=== PATIENT | female | born 2000 | race Caucasian/White ===

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

== ENCOUNTER 2018-06-14 23:51 | Emergency (ER) | payer MEDICAID, OTHER ==
[2018-06-15] MEDS ORDERED: Ketorolac 60 MG/2 ML SDV IM ONE (00:43)
--- NOTE | 2018-06-15 00:51 | EDM.PDOC ---
ED HPI GENERAL MEDICAL PROBLEM - General Chief Complaint: Back Pain or Injury Stated Complaint: LOWER BACK PAIN Time Seen by Provider: 06/15/18 00:20 Source of Information: Reports: Patient History Limitations: Reports: No Limitations - History of Present Illness INITIAL COMMENTS - FREE TEXT/NARRATIVE: c/o LBP x 1h pt with b/l mid and low back pain x 1h, onset 11 PM, took Tyl x 2 without benefit, raps around hips worked at [employer] earlier in the day, no injury 22 wk preg pt called OB on-call doc who told her to go to nearest ED continuous, no cramping, no lower abd or uterine pain FHTs wnl here with sig other is scheduled to work at [employer] form 10a to 4p today, did request work note treatment plan reviewed, pt voiced her understanding 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 Lower back Pain Score (Numeric/FACES): 7 - Related Data Allergies Allergy/AdvReac Type Severity Reaction Status Date / Time Penicillins Allergy Difficulty Verified 06/15/18 00:03 Breathing Home Meds: Home Meds Vit37/Iron/Folic Acid [Prenata] 1 tab DAILY 06/15/18 [History] Past Medical History - Past Health History Medical/Surgical History: Denies Medical/Surgical History Genitourinary History: Reports: Pyelonephritis 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 Musculoskeletal History: Reports: Arthritis, Fracture, Fibromyalgia, Other (See Below) Other Musculoskeletal History: scoliosis, hx fx R hand Neurological History: Reports: Other (See Below) Other Neuro History: scoliosis Endocrine/Metabolic History: Reports: Obesity/BMI 30+ - Past Surgical History HEENT Surgical History: Reports: Adenoidectomy, Tonsillectomy Neurological Surgical History: Reports: None Musculoskeletal Surgical History: Reports: Other (See Below) Other Musculoskeletal Surgeries/Procedures:: bilat stretching of ligaments in lower legs Social & Family History - Family History Family Medical History: Noncontributory - Tobacco Use Smoking Status *Q: Never Smoker - Caffeine Use Caffeine Use: Reports: Soda - Recreational Drug Use Recreational Drug Use: No ED ROS GENERAL - Review of Systems Review Of Systems: See Below Constitutional: Reports: No Symptoms HEENT: Reports: No Symptoms Respiratory: Reports: No Symptoms Cardiovascular: Reports: No Symptoms Endocrine: Reports: No Symptoms GI/Abdominal: Reports: No Symptoms : Reports: No Symptoms Musculoskeletal: Reports: Back Pain Skin: Reports: No Symptoms Neurological: Reports: No Symptoms Psychiatric: Reports: No Symptoms Hematologic/Lymphatic: Reports: No Symptoms Immunologic: Reports: No Symptoms ED EXAM,LOWER BACK PAIN/INJURY - Physical Exam Exam: See Below Exam Limited By: No Limitations General Appearance: Alert, WD/WN, Mild Distress Ears: Normal External Exam Nose: Normal Inspection, Normal Mucosa, No Blood Throat/Mouth: Normal Inspection, Normal Lips, Normal Voice, No Airway Compromise Head: Atraumatic, Normocephalic Neck: Normal Inspection, Supple, Non-Tender, Full Range of Motion Respiratory/Chest: No Respiratory Distress, Lungs Clear, Normal Breath Sounds, No Accessory Muscle Use, Chest Non-Tender Cardiovascular: Regular Rate, Rhythm, No Edema, No Gallop, No JVD, No Murmur, No Rub GI/Abdominal: Soft, Non-Tender, No Organomegaly, No Distention Back Exam: Normal Inspection, Full Range of Motion, Other (sitting rather stiffly on edge of bed, has non-localized tender to light touch over the lower 2 /3rds of the back, no true spasm, no bony tender, no SI tender) Extremities: Normal Inspection, Non-Tender, No Pedal Edema Neurological: Alert, Normal Mood/Affect, CN II-XII Intact, No Motor/Sensory Deficits, Oriented x 3 Psychiatric: Anxious Skin Exam: Warm, Dry, Intact, Normal Color, No Rash Lymphatic: No Adenopathy Course - Vital Signs Last Recorded V/S: Last Vital Signs Temp 36.6 C 06/15/18 00:02 Pulse 108 H 06/15/18 00:02 Resp 20 06/15/18 00:02 BP 144/99 H 06/15/18 00:02 Pulse Ox 100 06/15/18 00:02 - Orders/Labs/Meds Labs: Laboratory Tests 06/15/18 Range/Units 00:10 Urine Color Yellow (YELLOW) Urine Appearance Clear (CLEAR) Urine pH 5.0 (5.0-6.5) Ur Specific Dewitt 1.020 (1.010-1.025) Urine Protein Negative (NEGATIVE) mg/dL Urine Glucose (UA) Normal (NEGATIVE) mg/dL Urine Ketones Negative (NEGATIVE) mg/dL Urine Occult Blood Negative (NEGATIVE) Urine Nitrite Negative (NEGATIVE) Urine Bilirubin Negative (NEGATIVE) Urine Urobilinogen Normal (NEGATIVE) mg/dL Ur Leukocyte Esterase Negative (NEGATIVE) Urine RBC 0-5 (0) Urine WBC 0-5 (0) Ur Squamous Epith Cells Occasional (NS,R,O) Urine Bacteria Few H (NS) Meds: Medications Discontinued Medications Generic Name Dose Route Start Last Admin Trade Name Lamberto PRN Reason Stop Dose Admin Ketorolac Tromethamine 60 mg 06/15/18 00:43 Toradol IM 06/15/18 00:44 ONETIME ONE - Re-Assessments/Exams Free Text/Narrative Re-Assessment/Exam: 06/15/18 00:50 has low back strain in absence of known injury, c/w overuse and Departure - Departure Time of Disposition: 00:50 Disposition: Home, Self-Care 01 Condition: Good Clinical Impression: Low back strain - Discharge Information *PRESCRIPTION DRUG MONITORING PROGRAM REVIEWED*: Not Applicable *COPY OF PRESCRIPTION DRUG MONITORING REPORT IN PATIENT JUDAH: Not Applicable Instructions: Low Back Strain Referrals: Manoj Miramontes MD [Primary Care Provider] - Forms: ED Department Discharge, ED Return to Work/School Form Additional Instructions: For pain and inflammation, take acetaminophen 500 mg 2 tabs and ibuprofen 200 mg 3 tabs 4 times a day for 3 days, longer if needed. Use heat for 10 minutes 4 times a day. Sleep on a firm mattress. Rest today. No work. See your doctor next week. Return to ED if you are feeling worse.
[2018-06-15 03:12] VITALS: BP 145/89
== END 2018-06-15 01:33 | disposition home or self-care (01) ==
LOC: FB.ED 23:51
DX: O99.89 Other specified diseases and conditions complicating pregnancy, childbirth and the puerperium (principal); S39.012A Strain of muscle, fascia and tendon of lower back, initial encounter; Z88.0 Allergy status to penicillin; Z79.899 Other long term (current) drug therapy; Z3A.22 22 weeks gestation of pregnancy; X58.XXXA Exposure to other specified factors, initial encounter
CPT/HCPCS: 81001; 96372; 99283; J1885

== ENCOUNTER 2018-07-27 14:33 | Emergency (ER) | payer OTHER, MEDICAID ==
[2018-07-27] MEDS ORDERED: Acetaminophen 325 MG Tab PO ONE (14:49)
--- NOTE | 2018-07-27 14:52 | EDM.PDOC ---
ED HPI GENERAL MEDICAL PROBLEM - General Stated Complaint: R ARM INJURY Time Seen by Provider: 07/27/18 14:33 Source of Information: Reports: Patient, Family History Limitations: Reports: No Limitations - History of Present Illness INITIAL COMMENTS - FREE TEXT/NARRATIVE: 18 y.o.f. 6 months, came to the ed after a box fell onto her right arm at work. Pt has pain at her right arm since. She has FROM of her right elbow and limited ROM of her right shoulder with severe pain at her right humerus. 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 BP 138/86 RR 15 Pulse ox 100% on RA Pulse 110 Temp 36.7 Onset Date: 07/27/18 Onset Time: 14:00 Duration: Hour(s):, Constant Location: Reports: Upper Extremity, Right Quality: Reports: Dull, Pressure Severity: Moderate Improves with: Reports: Rest Worsens with: Reports: Movement Context: Reports: Trauma (Box fell on right arm) Associated Symptoms: Reports: Other (Pt is 6 months ) right shoulder Pain Score (Numeric/FACES): 8 - Related Data Allergies Allergy/AdvReac Type Severity Reaction Status Date / Time Penicillins Allergy Difficulty Verified 07/27/18 14:55 Breathing Home Meds: Home Meds Vit37/Iron/Folic Acid [Prenata] 1 tab DAILY 06/15/18 [History] Past Medical History - Past Health History Medical/Surgical History: Denies Medical/Surgical History Genitourinary History: Reports: Pyelonephritis 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 Musculoskeletal History: Reports: Arthritis, Fracture, Fibromyalgia, Other (See Below) Other Musculoskeletal History: scoliosis, hx fx R hand Neurological History: Reports: Other (See Below) Other Neuro History: scoliosis Endocrine/Metabolic History: Reports: Obesity/BMI 30+ - Past Surgical History HEENT Surgical History: Reports: Adenoidectomy, Tonsillectomy Neurological Surgical History: Reports: None Musculoskeletal Surgical History: Reports: Other (See Below) Other Musculoskeletal Surgeries/Procedures:: bilat stretching of ligaments in lower legs Social & Family History - Family History Family Medical History: Noncontributory - Caffeine Use Caffeine Use: Reports: Soda Review of Systems - Review of Systems Review Of Systems: See Below Constitutional: Reports: No Symptoms Eyes: Reports: No Symptoms Ears: Reports: No Symptoms Nose: Reports: No Symptoms Mouth/Throat: Reports: No Symptoms Respiratory: Reports: No Symptoms Cardiovascular: Reports: No Symptoms GI/Abdominal: Reports: No Symptoms Genitourinary: Reports: No Symptoms Musculoskeletal: Reports: Arm Pain (right upper arm) Skin: Reports: No Symptoms Neurological: Reports: No Symptoms Psychiatric: Reports: No Symptoms ED EXAM, GENERAL - Physical Exam Exam: See Below Exam Limited By: No Limitations General Appearance: Alert, WD/WN, Mild Distress Eye Exam: Bilateral Eye: Normal Inspection Ears: Normal External Exam Ear Exam: Bilateral Ear: Auricle Normal Nose: Normal Inspection, Normal Mucosa Throat/Mouth: Normal Inspection, Normal Lips, Normal Teeth, Normal Voice, No Airway Compromise Head: Atraumatic, Normocephalic Neck: Normal Inspection, Supple, Non-Tender, Full Range of Motion Respiratory/Chest: No Respiratory Distress, Lungs Clear, Normal Breath Sounds, No Accessory Muscle Use, Chest Non-Tender Cardiovascular: Normal Peripheral Pulses, Regular Rate, Rhythm, No Edema, No Gallop, No Murmur, No Rub GI/Abdominal: Normal Bowel Sounds, Soft, Non-Tender, No Organomegaly, No Abnormal Bruit, No Mass, Pelvis Stable (Female) Exam: Deferred Rectal (Female) Exam: Deferred Back Exam: Normal Inspection, Full Range of Motion Extremities: Normal Inspection, Limited Range of Motion (right upper arm due to pain) Neurological: Alert, Oriented, CN II-XII Intact, Normal Cognition, Normal Gait Psychiatric: Normal Affect, Normal Mood Skin Exam: Warm, Dry, Intact, Normal Color, No Rash Lymphatic: No Adenopathy Course - Vital Signs Text/Narrative:: 18 y.o.f. 6 months, came to the ed after a box fell onto her right arm at work. Pt has pain at her right arm since. She has FROM of her right elbow and limited ROM of her right shoulder with severe pain at her right humerus. 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 BP 138/86 RR 15 Pulse ox 100% on RA Pulse 110 Temp 36.7 PE: 18 y.o.w.f with right arm pain due to trauma at work. Imaging: Right arm/shoulder: NAD Impression: Right upper Arm sprain Tx: Tylenol, Ice, [place] Reexam: Improved Plan: D/C with instructions Last Recorded V/S: Last Vital Signs Temp 36.4 C 07/27/18 15:32 Pulse 104 H 07/27/18 15:32 Resp 16 07/27/18 15:32 BP 131/87 07/27/18 15:32 Pulse Ox 98 07/27/18 15:32 - Orders/Labs/Meds Orders: Active Orders 24 hr Category Date Time Status Humerus Rt [CR] Stat Exams 07/27/18 14:48 Taken Meds: Medications Discontinued Medications Generic Name Dose Route Start Last Admin Trade Name Lamberto PRN Reason Stop Dose Admin Acetaminophen 650 mg 07/27/18 14:49 07/27/18 14:55 Tylenol PO 07/27/18 14:50 650 mg NOW ONE Administration Departure - Departure Time of Disposition: 15:25 Disposition: Home, Self-Care 01 Condition: Good Clinical Impression: Sprain of upper arm, right Qualifiers: Encounter type: initial encounter Qualified Code(s): S53.401A - Unspecified sprain of right elbow, initial encounter - Discharge Information Instructions: RICE for Routine Care of Injuries Referrals: Manoj Miramontes MD [Primary Care Provider] - Forms: ED Return to Work/School Form Additional Instructions: Rest, Ice and elevation, Tylenol for pain, please f/u, come back if your symptoms get worse acutely. - My Orders Last 24 Hours: My Active Orders 07/27/18 14:48 Humerus Rt [CR] Stat - Assessment/Plan Last 24 Hours: My Active Orders 07/27/18 14:48 Humerus Rt [CR] Stat
[2018-07-27 15:42] VITALS: BP 131/87
--- NOTE | 2018-07-29 10:54 | CR ---
INDICATION: Trauma, pain upper arm/shoulder area. RIGHT HUMERUS: Three images of the right humerus were obtained and revealed the shoulder to appear intact with the humerus negative for fracture, dislocation, or other significant bone or joint abnormality. [facility]
== END 2018-07-27 15:35 | disposition home or self-care (01) ==
LOC: FB.ED 14:33
DX: S53.401A Unspecified sprain of right elbow, initial encounter (principal); E66.9 Obesity, unspecified; Z88.0 Allergy status to penicillin; W20.8XXA Other cause of strike by thrown, projected or falling object, initial encounter
CPT/HCPCS: 73060-RT; 99283-25; A9270-GY

== ENCOUNTER 2018-09-02 23:18 | Emergency (ER) | payer MEDICAID ==
--- NOTE | 2018-09-02 23:39 | EDM.PDOC ---
ED HPI GENERAL MEDICAL PROBLEM - General Stated Complaint: RT HAND PAIN Time Seen by Provider: 09/02/18 23:30 - History of Present Illness INITIAL COMMENTS - FREE TEXT/NARRATIVE: pt is at 33 weeks with EDC on october 15 comes in after accidental fall with c/o right wrist pain , denies any other injuries or any other concerns. 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 Musculoskeletal History: Reports: Arthritis, Fracture, Fibromyalgia, Other (See Below) Other Musculoskeletal History: scoliosis, hx fx R hand Neurological History: Reports: Other (See Below) Other Neuro History: scoliosis Endocrine/Metabolic History: Reports: Obesity/BMI 30+ - Past Surgical History HEENT Surgical History: Reports: Adenoidectomy, Tonsillectomy Neurological Surgical History: Reports: None Musculoskeletal Surgical History: Reports: Other (See Below) Other Musculoskeletal Surgeries/Procedures:: bilat stretching of ligaments in lower legs Social & Family History - Family History Family Medical History: Noncontributory - Caffeine Use Caffeine Use: Reports: Soda ED ROS GENERAL - Review of Systems Review Of Systems: See Below Respiratory: Reports: No Symptoms Cardiovascular: Reports: No Symptoms GI/Abdominal: Reports: No Symptoms, Abdominal Pain ED EXAM, GENERAL - Physical Exam Exam: See Below Exam Limited By: No Limitations General Appearance: Alert, Mild Distress Respiratory/Chest: No Respiratory Distress Cardiovascular: Normal Peripheral Pulses Extremities: Other (tender all around right wrist, no deformities , ROM at right wrist is full. ) Neurological: Alert, Oriented Course - Vital Signs Text/Narrative:: xray shows no acute findings, supportive mng for wrist contusion injury was recommended. - Orders/Labs/Meds Orders: Active Orders 24 hr Category Date Time Status Wrist Comp Min 3V Rt [CR] Stat Exams 09/02/18 23:43 Taken Departure - Departure Time of Disposition: 00:05 Disposition: Home, Self-Care 01 Clinical Impression: Wrist contusion - Discharge Information Referrals: Manoj Miramontes MD [Primary Care Provider] - - Problem List & Annotations (1) Wrist contusion SNOMED Code(s): 60833322 Code(s): S60.219A - CONTUSION OF UNSPECIFIED WRIST, INITIAL ENCOUNTER Status: Acute Current Visit: No - My Orders Last 24 Hours: My Active Orders 09/02/18 23:43 Wrist Comp Min 3V Rt [CR] Stat - Assessment/Plan Last 24 Hours: My Active Orders 09/02/18 23:43 Wrist Comp Min 3V Rt [CR] Stat
[2018-09-03 01:27] VITALS: BP 147/95
--- NOTE | 2018-09-03 14:46 | CR ---
INDICATION: Pain after a fall distal to the joint. RIGHT WRIST: Three views of the right wrist were obtained 09/02/18 - no comparisons. A fracture, dislocation, or other significant bone or joint abnormality was not identified. [facility]
== END 2018-09-03 00:20 | disposition home or self-care (01) ==
LOC: FB.ED 23:18
DX: O9A.213 Injury, poisoning and certain other consequences of external causes complicating pregnancy, third trimester (principal); S60.211A Contusion of right wrist, initial encounter; Z88.0 Allergy status to penicillin; Z3A.33 33 weeks gestation of pregnancy; Z98.890 Other specified postprocedural states; W19.XXXA Unspecified fall, initial encounter
CPT/HCPCS: 73110-RT; 99283-25

== ENCOUNTER 2018-10-01 18:47 | Emergency (ER) | payer MEDICAID ==
[2018-10-01] MEDS ORDERED: Ketorolac 30 MG/ML SDV IVPUSH ONE ×2 (19:12→19:54)
[2018-10-01] MEDS: Sodium Chloride 0.9% 10 ML Syringe FLUSH PRN ×2 (19:22→20:05)
--- NOTE | 2018-10-01 20:00 | EDM.PDOC ---
ED HPI GENERAL MEDICAL PROBLEM - General Chief Complaint: Respiratory Problem Stated Complaint: CHEST PAIN, SOB, 7 DAYS POST C SECTION Time Seen by Provider: 10/01/18 19:00 Source of Information: Reports: Patient, Family, Old Records History Limitations: Reports: No Limitations - History of Present Illness INITIAL COMMENTS - FREE TEXT/NARRATIVE: Juan Manuel is about 10 days post for primigravida, and reports onset of sharp pains in the anterior chest 48 hrs ago that have escalated to a 9 /10 this evening, associated with pain with respirations. She points to the sternal and parasternal area, denies breast tenderness or sofía engorgement. There are no palpitations, sweats, sofía SOB, nausea or belching. She has a remote hx of fibromyalgia, and has been off gabapentin during the . - Related Data Allergies Allergy/AdvReac Type Severity Reaction Status Date / Time Penicillins Allergy Difficulty Verified 10/01/18 23:23 Breathing Home Meds: Home Meds Acetaminophen [Tylenol] 325 mg PO Q4H PRN 09/20/18 [History] Ranitidine HCl [Zantac 75] 75 mg PO DAILY PRN 09/20/18 [History] Past Medical History - Past Health History Medical/Surgical History: Denies Medical/Surgical History Cardiovascular History: Reports: Other (See Below) Other Cardiovascular History: Hospitalized with hypertension during . 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 ANALYST History: G1 Musculoskeletal History: Reports: Arthritis, Fracture, Fibromyalgia, Other (See Below) Other Musculoskeletal History: scoliosis, hx fx R hand Neurological History: Reports: Other (See Below) Other Neuro History: scoliosis Psychiatric History: Reports: ADHD Endocrine/Metabolic History: Reports: Diabetes, Gestational, Obesity/BMI 30+ - Past Surgical History HEENT Surgical History: Reports: Adenoidectomy, Tonsillectomy Cardiovascular Surgical History: Reports: None Neurological Surgical History: Reports: None Musculoskeletal Surgical History: Reports: Other (See Below) Other Musculoskeletal Surgeries/Procedures:: bilat stretching of ligaments in lower legs Social & Family History - Family History Family Medical History: Noncontributory - Caffeine Use Caffeine Use: Reports: Soda Other Caffeine Use: daily ED ROS GENERAL - Review of Systems Review Of Systems: See Below Constitutional: Reports: No Symptoms HEENT: Reports: No Symptoms Respiratory: Reports: Other (pain with breaths) Cardiovascular: Reports: Chest Pain Endocrine: Reports: No Symptoms GI/Abdominal: Reports: No Symptoms : Reports: No Symptoms Musculoskeletal: Reports: Other (pains in anterior chest, clavicals, lower back and pelvic joints) Skin: Reports: No Symptoms Neurological: Reports: No Symptoms Psychiatric: Reports: No Symptoms Hematologic/Lymphatic: Reports: No Symptoms Immunologic: Reports: No Symptoms ED EXAM, GENERAL - Physical Exam Exam: See Below Exam Limited By: No Limitations General Appearance: Alert, WD/WN, Anxious, Mild Distress, Obese Eye Exam: Bilateral Eye: EOMI, Normal Inspection, PERRL Ears: Normal External Exam Nose: Normal Inspection Throat/Mouth: Normal Inspection, Normal Oropharynx Head: Normocephalic Neck: Normal Inspection, Supple, Non-Tender, Full Range of Motion Respiratory/Chest: No Respiratory Distress, Normal Breath Sounds, No Accessory Muscle Use, Other (tender parasternal and xiphoid, sternoclavicular also tender) Cardiovascular: Normal Peripheral Pulses, Regular Rate, Rhythm, No Edema, No Murmur GI/Abdominal: Normal Bowel Sounds, Soft, Non-Tender, No Organomegaly, No Distention, No Mass (Female) Exam: Deferred Rectal (Female) Exam: Deferred Back Exam: Normal Inspection Extremities: Normal Inspection, Normal Range of Motion, Non-Tender Neurological: Alert, Oriented, CN II-XII Intact, Normal Cognition, No Motor/ Sensory Deficits Psychiatric: Normal Affect, Anxious Skin Exam: Warm, Dry, Intact, Normal Color Lymphatic: No Adenopathy Course - Vital Signs Text/Narrative:: Following assessment, screening labs were performed noting: Hgb 9.2 gm, WBC 9, 300, plts 468,000; d dimer 5.93, Troponin I <0.017; chest x ray normal for age, Chest CT angio neg for PE; Juan Manuel was administered Toradol 30 mg IV x2 with improvement in pain; her BP 140's/104 was elevated at time of discharge. Last Recorded V/S: Last Vital Signs Temp 36.6 C 10/01/18 19:00 Pulse 86 10/01/18 22:00 Resp 18 10/01/18 22:00 BP 146/104 H 10/01/18 22:00 Pulse Ox 100 10/01/18 22:00 - Orders/Labs/Meds Orders: Active Orders 24 hr Category Date Time Status EKG Documentation Completion [RC] ASDIRECTED Care 10/01/18 19:05 Active Ang Chest [CT] Stat Exams 10/01/18 20:18 Taken Chest 1V Frontal [CR] Stat Exams 10/01/18 19:04 Taken Peripheral IV Insertion Adult [OM.PC] Routine Oth 10/01/18 19:12 Ordered EKG 12 Lead [EK] Routine Ther 10/01/18 19:04 Ordered Labs: Laboratory Tests 10/01/18 10/01/18 10/01/18 Range/Units 19:12 19:12 19:12 WBC 9.3 (4.5-12.0) X10-3/uL RBC 3.22 L (3.23-5.20) x10(6)uL Hgb 9.2 L (11.5-15.5) g/dL Hct 27.1 L (30.0-51.3) % MCV 84.0 (80-96) fL MCH 28.6 (27.7-33.6) pg MCHC 34.1 (32.2-35.4) g/dL RDW 13.7 (11.5-15.5) % Plt Count 468 H (125-369) X10(3)uL MPV 7.5 (7.4-10.4) fL Neut % (Auto) 61.0 (46-82) % Lymph % (Auto) 26.9 (13-37) % [place] % (Auto) 8.2 (4-12) % Eos % (Auto) 4 (1.0-5.0) % Baso % (Auto) 0 (0-2) % Neut # (Auto) 5.7 (1.6-8.3) # Lymph # (Auto) 2.5 (0.6-5.0) # [place] # (Auto) 0.8 (0.0-1.3) # Eos # (Auto) 0.3 (0.0-0.8) # Baso # (Auto) 0.0 (0.0-0.2) # D-Dimer, Quantitative 5.93 H (0.0-0.59) mg/LFEU Sodium 141 (135-145) mmol/L Potassium 3.5 (3.5-5.3) mmol/L Chloride 107 (100-110) mmol/L Carbon Dioxide 21 (21-32) mmol/L BUN 10 (7-18) mg/dL Creatinine 0.7 (0.55-1.02) mg/dL Est Cr Clr Drug Dosing TNP Estimated GFR (MDRD) > 60 (>60) BUN/Creatinine Ratio 14.3 (9-20) Glucose 92 (80-116) mg/dL Calcium 8.9 (8.6-10.2) mg/dL Total Bilirubin 0.3 (0.1-1.3) mg/dL AST 18 (5-25) IU/L ALT 22 (12-36) U/L Alkaline Phosphatase 139 H (56-112) IU/L Troponin I (<0.017-0.056) ng/mL Total Protein 6.4 (6.0-8.0) g/dL Albumin 2.6 L (3.5-5.2) g/dL Globulin 3.8 g/dL Albumin/Globulin Ratio 0.7 06/18/19 Range/Units 19:12 WBC (4.5-12.0) X10-3/uL RBC (3.23-5.20) x10(6)uL Hgb (11.5-15.5) g/dL Hct (30.0-51.3) % MCV (80-96) fL MCH (27.7-33.6) pg MCHC (32.2-35.4) g/dL RDW (11.5-15.5) % Plt Count (125-369) X10(3)uL MPV (7.4-10.4) fL Neut % (Auto) (46-82) % Lymph % (Auto) (13-37) % [place] % (Auto) (4-12) % Eos % (Auto) (1.0-5.0) % Baso % (Auto) (0-2) % Neut # (Auto) (1.6-8.3) # Lymph # (Auto) (0.6-5.0) # [place] # (Auto) (0.0-1.3) # Eos # (Auto) (0.0-0.8) # Baso # (Auto) (0.0-0.2) # D-Dimer, Quantitative (0.0-0.59) mg/LFEU Sodium (135-145) mmol/L Potassium (3.5-5.3) mmol/L Chloride (100-110) mmol/L Carbon Dioxide (21-32) mmol/L BUN (7-18) mg/dL Creatinine (0.55-1.02) mg/dL Est Cr Clr Drug Dosing Estimated GFR (MDRD) (>60) BUN/Creatinine Ratio (9-20) Glucose (80-116) mg/dL Calcium (8.6-10.2) mg/dL Total Bilirubin (0.1-1.3) mg/dL AST (5-25) IU/L ALT (12-36) U/L Alkaline Phosphatase (56-112) IU/L Troponin I < 0.017 L (<0.017-0.056) ng/mL Total Protein (6.0-8.0) g/dL Albumin (3.5-5.2) g/dL Globulin g/dL Albumin/Globulin Ratio Meds: Medications Discontinued Medications Generic Name Dose Route Start Last Admin Trade Name Freq PRN Reason Stop Dose Admin Iopamidol 80 ml 10/01/18 20:45 10/01/18 21:05 Isovue-370 (76%) IV 10/01/18 20:46 80 ml . DIRECTED ONE Administration Ketorolac Tromethamine 30 mg 10/01/18 19:12 10/01/18 19:20 Toradol IVPUSH 10/01/18 19:13 30 mg ONETIME ONE Administration Ketorolac Tromethamine 30 mg 10/01/18 19:54 10/01/18 20:03 Toradol IVPUSH 10/01/18 19:55 30 mg ONETIME ONE Administration Sodium Chloride 10 ml 10/01/18 19:12 10/01/18 20:05 Saline Flush FLUSH 10 ml ASDIRECTED PRN Administration Keep Vein Open Departure - Departure Time of Disposition: 22:00 Disposition: Home, Self-Care 01 Condition: Fair Clinical Impression: Atypical chest pain - Discharge Information *PRESCRIPTION DRUG MONITORING PROGRAM REVIEWED*: Not Applicable *COPY OF PRESCRIPTION DRUG MONITORING REPORT IN PATIENT JUDAH: Not Applicable Instructions: Chest Wall Pain Referrals: Manoj Miramontes MD [Primary Care Provider] - Forms: ED Department Discharge Care Plan Goals: Take Tylenol or Advil for pain. Get a home blood pressure machine, monitor your blood pressure and report findings to your MD. - Problem List & Annotations (1) Atypical chest pain SNOMED Code(s): 295323427 Code(s): R07.89 - OTHER CHEST PAIN Status: Acute Annotation/Comment:: NSAIDs or Tylenol for pain, and follow up with PCP if sxs persist. (2) Hypertension SNOMED Code(s): 29017944 Code(s): I10 - ESSENTIAL (PRIMARY) HYPERTENSION Status: Acute Annotation/ Comment:: Consider a home BP monitoring device and follow up with PCP. Qualifiers: Hypertension type: unspecified Qualified Code(s): I10 - Essential (primary ) hypertension - Problem List Review Problem List Initiated/Reviewed/Updated: Yes - My Orders Last 24 Hours: My Active Orders 10/01/18 19:04 Chest 1V Frontal [CR] Stat EKG 12 Lead [EK] Routine 10/01/18 19:05 EKG Documentation Completion [RC] ASDIRECTED 10/01/18 19:12 Peripheral IV Insertion Adult [OM.PC] Routine 10/01/18 20:18 Ang Chest [CT] Stat - Assessment/Plan Last 24 Hours: My Active Orders 10/01/18 19:04 Chest 1V Frontal [CR] Stat EKG 12 Lead [EK] Routine 10/01/18 19:05 EKG Documentation Completion [RC] ASDIRECTED 10/01/18 19:12 Peripheral IV Insertion Adult [OM.PC] Routine 10/01/18 20:18 Ang Chest [CT] Stat Plan: Follow up with PCP.
[2018-10-01] MEDS ORDERED: Iopamidol 755 Mg/ML 100 ML Bottle IV ONE (20:45)
[2018-10-01 23:32] VITALS: BP 146/104
== END 2018-10-01 22:25 | disposition home or self-care (01) ==
LOC: FB.ED 18:47
DX: O99.89 Other specified diseases and conditions complicating pregnancy, childbirth and the puerperium (principal); R07.89 Other chest pain; O13.5 Gestational [pregnancy-induced] hypertension without significant proteinuria, complicating the puerperium; Z88.0 Allergy status to penicillin; Z79.899 Other long term (current) drug therapy
CPT/HCPCS: 36415; 71045; 71275; 80053; 84484; 85025; 85379; 93005; 96374; 96376; 99285-25; J1885; Q9967

== ENCOUNTER 2018-12-23 00:59 | Emergency (ER) | payer MEDICAID ==
--- NOTE | 2018-12-23 01:40 | EDM.PDOC ---
ED HPI GENERAL MEDICAL PROBLEM - General Chief Complaint: Chest Pain Stated Complaint: chest pain Time Seen by Provider: 12/23/18 01:22 Source of Information: Reports: Patient History Limitations: Reports: No Limitations - History of Present Illness INITIAL COMMENTS - FREE TEXT/NARRATIVE: 18-year-old female who reports she began having left-sided sharp chest pain at approximately 10 AM when she awoke yesterday morning. It was mild at this time and seemed to be worse with palpation, movement and with deep breaths. The pain did seem to come and go through the day and was of a mild nature when it came on. She has had no trauma to the area. She has had no cough or cold symptoms. She has had no fevers or chills. She has had no hemoptysis. Tonight at approximately midnight, she developed a worsening of this pain that she reports just will not go away. She rates the pain as an 8/10 now. She also reports feeling numbness and tingling in her arms and legs and face and he does appear to be hyperventilating at this time. The pain is a sharp and throbbing pain. She does feel somewhat short of breath with it. There has been no nausea or vomiting. She had a similar pain as this in the past following a and at that time (September 2018) she did have an elevated d-dimer but a negative CT of her chest for PE. There are no other associated signs or symptoms. There are no other modifying factors. 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: Musculoskeletal History: Reports: Arthritis, Fracture, Fibromyalgia, Other (See Below) Other Musculoskeletal History: scoliosis, hx fx R hand Psychiatric History: Reports: ADHD, Anxiety Endocrine/Metabolic History: Reports: Diabetes, Gestational, Obesity/BMI 30+ - Past Surgical History HEENT Surgical History: Reports: Adenoidectomy, Tonsillectomy Female Surgical History: Reports: Section Musculoskeletal Surgical History: Reports: Other (See Below) Other Musculoskeletal Surgeries/Procedures:: bilat stretching of ligaments in lower legs Social & Family History - Tobacco Use Smoking Status *Q: Unknown Ever Smoked (Nonsmoker) - Caffeine Use Caffeine Use: Reports: Soda Other Caffeine Use: daily - Alcohol Use Alcohol Use History: No - Living Situation & Occupation Living situation: Reports: with Significant Other ED ROS GENERAL - Review of Systems Review Of Systems: See Below Constitutional: Reports: No Symptoms HEENT: Reports: No Symptoms Respiratory: Reports: Shortness of Breath, Pleuritic Chest Pain Cardiovascular: Reports: Chest Pain Endocrine: Reports: No Symptoms GI/Abdominal: Reports: No Symptoms : Reports: No Symptoms, Other (Has a Mirena IUD in place) Musculoskeletal: Reports: No Symptoms Skin: Reports: No Symptoms Neurological: Reports: No Symptoms Psychiatric: Reports: Anxiety Hematologic/Lymphatic: Reports: No Symptoms Immunologic: Reports: No Symptoms ED EXAM, GENERAL - Physical Exam Exam: See Below Exam Limited By: No Limitations General Appearance: Alert, Anxious, Moderate Distress, Obese, Other (The patient is hyperventilating) Eye Exam: Bilateral Eye: EOMI, Normal Inspection, PERRL Ears: Normal External Exam, Hearing Grossly Normal Ear Exam: Bilateral Ear: Auricle Normal Nose: Normal Inspection, Normal Mucosa, No Blood Throat/Mouth: Normal Inspection, Normal Lips, Normal Oropharynx, Normal Voice, No Airway Compromise Head: Atraumatic, Normocephalic Neck: Normal Inspection, Supple, Non-Tender, Full Range of Motion Respiratory/Chest: No Respiratory Distress, Lungs Clear, Normal Breath Sounds, No Accessory Muscle Use, Other (Tender over her left chest where she is having the pain.) Cardiovascular: Normal Peripheral Pulses, Regular Rate, Rhythm, No JVD, No Murmur Peripheral Pulses: 2+: Radial (L), Radial (R), Dorsalis Pedis (L), Dorsalis Pedis (R) GI/Abdominal: Normal Bowel Sounds, Soft, Non-Tender, No Mass Back Exam: Normal Inspection, Full Range of Motion Extremities: Normal Inspection, Normal Range of Motion, Non-Tender, No Pedal Edema, Normal Capillary Refill Neurological: Alert, Oriented, CN II-XII Intact, Normal Cognition, No Motor/ Sensory Deficits Skin Exam: Warm, Dry, Intact, Normal Color, No Rash EKG INTERPRETATION EKG Date: 12/23/18 Time: 01:08 Rhythm: NSR Rate (Beats/Min): 95 [place]: Normal P-Wave: Present QRS: Normal ST-T: Other (Nonspecific ST-T changes) QT: Normal Comparison: No Change (From EKG performed on 09/2018.) Course - Vital Signs Last Recorded V/S: Last Vital Signs Temp 36.8 C 12/23/18 01:00 Pulse 97 12/23/18 01:00 Resp 20 12/23/18 01:00 BP 135/63 12/23/18 01:00 Pulse Ox 97 12/23/18 01:00 - Orders/Labs/Meds Orders: Active Orders 24 hr Category Date Time Status EKG Documentation Completion [RC] ASDIRECTED Care 12/23/18 01:42 Active Ang Chest [CT] Stat Exams 12/23/18 02:31 Ordered Chest 1V Frontal [CR] Stat Exams 12/23/18 01:41 Ordered Sodium Chloride 0.9% [Saline Flush] Med 12/23/18 02:31 Active 10 ml FLUSH ASDIRECTED PRN Peripheral IV Insertion Adult [OM.PC] Routine Oth 12/23/18 02:31 Ordered EKG 12 Lead [EK] Routine Ther 12/23/18 01:41 Ordered Medication Orders Sodium Chloride (Saline Flush) 10 ml FLUSH ASDIRECTED PRN PRN Reason: Keep Vein Open Labs: Laboratory Tests 12/23/18 12/23/18 Range/Units 01:52 01:52 D-Dimer, Quantitative 0.99 H (0.0-0.59) mg/LFEU Troponin I < 0.017 L (<0.017-0.056) ng/mL Meds: Medications Generic Name Dose Route Start Last Admin Trade Name Freq PRN Reason Stop Dose Admin Sodium Chloride 10 ml 12/23/18 02:31 Saline Flush FLUSH ASDIRECTED PRN Keep Vein Open Discontinued Medications Generic Name Dose Route Start Last Admin Trade Name Lamberto PRN Reason Stop Dose Admin Iopamidol 100 ml 12/23/18 02:49 12/23/18 02:53 Isovue-370 (76%) IV 12/23/18 02:50 90 ml ONETIME ONE Administration Ketorolac Tromethamine 60 mg 12/23/18 01:42 12/23/18 01:50 Toradol IM 12/23/18 01:43 60 mg ONETIME ONE Administration Lorazepam 0.5 mg 12/23/18 01:42 12/23/18 01:51 Ativan PO 12/23/18 01:43 0.5 mg ONETIME ONE Administration - Radiology Interpretation Free Text/Narrative:: Portable chest x-ray showed no acute disease. CTA of chest showed no evidence of pulmonary embolus and no evidence of an acute pulmonary process. The subsegmental pulmonary arteries were not that well opacified but the study was read as negative by the radiologist. - Re-Assessments/Exams Free Text/Narrative Re-Assessment/Exam: 12/23/18 02:32: EKG was normal. Portable chest x-ray showed no acute disease. The troponin was negative. A d-dimer was elevated at 0.99. The patient will need CTA of chest to rule out PE. I discussed this with the patient and will proceed with CTA of chest. 12/23/18 03:48: CTA of the chest was negative for pulmonary embolus. She is feeling much improved. Her pain is down to a 2/10. This appears to be costochondritis in her left upper chest that may have been worsened by muscle spasm. She also seems to have had a hyperventilation episode that produced the numbness and tingling chin in her arms, legs and face and this has resolved. We' ll have the patient take ibuprofen 600 mg to 800 mg by mouth every 6-8 hours as needed for pain. I will also prescribe Flexeril 10 mg by mouth 3 times a day as needed for muscle spasm. She is to follow-up with her primary doctor. Departure - Departure Time of Disposition: 04:00 Disposition: Home, Self-Care 01 Condition: Good (Improved) Clinical Impression: Costochondritis, Acute hyperventilation, Muscle spasm - Discharge Information Prescriptions: Cyclobenzaprine [Flexeril] 10 mg PO TID PRN #15 tab PRN Reason: Muscle spasm or muscle pain Instructions: Costochondritis, [id number] Referrals: Manoj Miramontes MD [Primary Care Provider] - Forms: ED Department Discharge Additional Instructions: Your EKG was normal. Your initial chest x-ray was normal. Your blood tests were normal except for a mildly elevated blood clot screening test. The CT scan of your chest showed no blood clots. The pain in your chest appears to be do to an inflammation of the junction between your ribs and your breastbone called costochondritis and the more severe pain the you had may have been due to muscle spasm associated with this. You may take ibuprofen 600-800 mg by mouth every 6-8 hours as needed for pain. Medication as prescribed for muscle spasm or more severe pain (Flexeril 10 mg). Avoid any strenuous activity with your arms for the next 3-5 days. Follow-up with your primary doctor as needed. Back to the emergency department for coughing up blood, high fever, vomiting or any other concerning sign or symptom. - My Orders Last 24 Hours: My Active Orders 12/23/18 01:41 Chest 1V Frontal [CR] Stat EKG 12 Lead [EK] Routine 12/23/18 01:42 EKG Documentation Completion [RC] ASDIRECTED 12/23/18 02:31 Ang Chest [CT] Stat Sodium Chloride 0.9% [Saline Flush] 10 ml FLUSH ASDIRECTED PRN Peripheral IV Insertion Adult [OM.PC] Routine - Assessment/Plan Last 24 Hours: My Active Orders 12/23/18 01:41 Chest 1V Frontal [CR] Stat EKG 12 Lead [EK] Routine 12/23/18 01:42 EKG Documentation Completion [RC] ASDIRECTED 12/23/18 02:31 Ang Chest [CT] Stat Sodium Chloride 0.9% [Saline Flush] 10 ml FLUSH ASDIRECTED PRN Peripheral IV Insertion Adult [OM.PC] Routine
[2018-12-23] MEDS ORDERED: Ketorolac 60 MG/2 ML SDV IM ONE (01:42)
[2018-12-23] MEDS ORDERED: LORazepam 0.5 MG Tab PO ONE (01:42)
[2018-12-23] MEDS ORDERED: Sodium Chloride 0.9% 10 ML Syringe FLUSH PRN (02:31)
[2018-12-23] MEDS ORDERED: Iopamidol 755 Mg/ML 100 ML Bottle IV ONE (02:49)
[2018-12-23 03:51] VITALS: BP 131/87; PULSE 82
--- NOTE | 2018-12-24 08:16 | CR ---
INDICATION: Chest pain. CHEST ONE VIEW: An AP upright view of the chest 12/23/18 was compared with revealing no definite change or acute process. The heart remains normal in size. A mild dextroconvex scoliosis of the lower middle thoracic spine is again noted. An active infiltrate or effusion was not identified. Overlying EKG leads are again seen. IMPRESSION: 1. Stable chest. No acute process. 2. Scoliosis. 3. Exogenous obesity. MTDD
== END 2018-12-23 04:16 | disposition home or self-care (01) ==
LOC: FB.ED 00:59
DX: M94.0 Chondrocostal junction syndrome [Tietze] (principal); M62.838 Other muscle spasm; R06.4 Hyperventilation; Z88.0 Allergy status to penicillin; Z98.890 Other specified postprocedural states
CPT/HCPCS: 36415; 71045; 71275; 84484; 85379; 93005; 96372; 99285; A9270; J1885; Q9967

== ENCOUNTER 2019-08-16 13:15 | Emergency (ER) | payer MEDICAID ==
--- NOTE | 2019-08-16 13:33 | EDM.PDOC ---
ED HPI GENERAL MEDICAL PROBLEM - General Chief Complaint: Lower Extremity Injury/Pain Stated Complaint: LT LEG PAIN Time Seen by Provider: 08/16/19 13:32 Source of Information: Reports: Patient History Limitations: Reports: No Limitations - History of Present Illness INITIAL COMMENTS - FREE TEXT/NARRATIVE: 19-year-old female who reports at approximately 1 PM today she was squatting down all of her knees bent and she was trying to get up and had to "rock" up and down on her knees to be able to stand up and while doing that she felt a sharp pain in the midportion of her left lower leg from the front to the back. This pain is rated by her as a 7/10. There were no other injuries. She is ambulatory. She has normal sensation to her foot. There was no direct trauma to the area. There is no swelling to the area. There are no other associated signs or symptoms. There are no other modifying factors. 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: Musculoskeletal History: Reports: Arthritis, Fracture, Fibromyalgia, Other (See Below) Other Musculoskeletal History: scoliosis, hx fx R hand Psychiatric History: Reports: ADHD, Anxiety Endocrine/Metabolic History: Reports: Diabetes, Gestational, Obesity/BMI 30+ - Past Surgical History HEENT Surgical History: Reports: Adenoidectomy, Tonsillectomy Female Surgical History: Reports: Section Musculoskeletal Surgical History: Reports: Other (See Below) Other Musculoskeletal Surgeries/Procedures:: bilat stretching of ligaments in lower legs Social & Family History - Tobacco Use Smoking Status *Q: Unknown Ever Smoked (Nonsmoker) - Caffeine Use Caffeine Use: Reports: Soda Other Caffeine Use: daily - Alcohol Use Alcohol Use History: Yes Alcohol Use Frequency: Rarely - Living Situation & Occupation 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.) Review of Systems - Review of Systems Review Of Systems: See Below Constitutional: Reports: No Symptoms Eyes: Reports: No Symptoms Ears: Reports: No Symptoms Nose: Reports: No Symptoms Mouth/Throat: Reports: No Symptoms Respiratory: Reports: No Symptoms Cardiovascular: Reports: No Symptoms GI/Abdominal: Reports: No Symptoms Genitourinary: Reports: No Symptoms Musculoskeletal: Reports: Leg Pain Skin: Reports: No Symptoms Neurological: Reports: No Symptoms ED EXAM, GENERAL - Physical Exam Exam: See Below Exam Limited By: No Limitations General Appearance: Alert, Mild Distress, Obese Eye Exam: Bilateral Eye: EOMI, Normal Inspection Ears: Normal External Exam, Hearing Grossly Normal Ear Exam: Bilateral Ear: Auricle Normal Nose: Normal Inspection, Normal Mucosa, No Blood Throat/Mouth: Normal Inspection, Normal Voice, No Airway Compromise Head: Atraumatic, Normocephalic Neck: Normal Inspection, Supple, Non-Tender, Full Range of Motion Respiratory/Chest: No Respiratory Distress, Lungs Clear, Normal Breath Sounds, No Accessory Muscle Use, Chest Non-Tender Cardiovascular: Normal Peripheral Pulses, Regular Rate, Rhythm, No Murmur Peripheral Pulses: 2+: Dorsalis Pedis (L), Dorsalis Pedis (R) GI/Abdominal: Normal Bowel Sounds, Soft, Non-Tender Back Exam: Normal Inspection Extremities: Normal Inspection, Normal Range of Motion, No Pedal Edema, Normal Capillary Refill, Other (Some tenderness to palpation over the anterior, mid left lower leg/tibia area.) Neurological: Alert, Oriented, CN II-XII Intact, Normal Cognition, No Motor/ Sensory Deficits Psychiatric: Normal Affect Skin Exam: Warm, Dry, Intact, Normal Color, No Rash Course - Vital Signs Last Recorded V/S: Last Vital Signs Temp 36.5 C 08/16/19 13:15 Pulse 103 H 08/16/19 13:15 Resp 18 08/16/19 13:15 BP 122/79 08/16/19 13:15 Pulse Ox 99 08/16/19 13:15 - Orders/Labs/Meds Orders: Active Orders 24 hr Category Date Time Status Tibia Fibula Lt [CR] Stat Exams 08/16/19 13:49 Ordered Meds: Medications Discontinued Medications Generic Name Dose Route Start Last Admin Trade Name Lamberto PRN Reason Stop Dose Admin Ibuprofen 800 mg 08/16/19 13:49 08/16/19 13:53 Motrin PO 08/16/19 13:50 800 mg ONETIME ONE Administration - Radiology Interpretation Free Text/Narrative:: X-ray of left tib-fib shows no fracture. - Re-Assessments/Exams Free Text/Narrative Re-Assessment/Exam: 08/16/19 14:19: The x-ray of the patient's left tib-fib shows no fracture. She appears to have a bruise or a strain to the left lower leg. She was given ibuprofen for the pain here in the emergency department and she should to ibuprofen and Tylenol as needed for pain. She may also apply ice packs intermittently to the area. She should ambulate as tolerated. Departure - Departure Time of Disposition: 14:22 Disposition: Home, Self-Care 01 Condition: Good Clinical Impression: Muscle strain of left lower leg Qualifiers: Encounter type: initial encounter Qualified Code(s): S86.912A - Strain of unspecified muscle(s) and tendon(s) at lower leg level, left leg, initial encounter - Discharge Information Instructions: Nunez Splints, [id number], Muscle Strain, [id number] Referrals: Manoj Miramontes MD [Primary Care Provider] - Forms: ED Department Discharge Additional Instructions: The x-ray of your left lower leg showed no evidence of fracture. You appear to have a muscular strain to this area and this could be nunez splints as well which represent a strain to the muscles and the covering of the bone of the lower leg. You may take ibuprofen and Tylenol as needed for pain. Ambulate as tolerated. Apply ice packs intermittently to the left lower leg (no more than 20 -30 minutes at a time) for the next 2-3 days. Follow-up with your primary doctor as needed. Sepsis Event Note - Evaluation Sepsis Screening Result: No Definite Risk - Focused Exam Vital Signs: Vital Signs Temp Pulse Resp BP Pulse Ox 08/16/19 13:15 36.5 C 103 H 18 122/79 99 Date Exam was Performed: 08/16/19 Time Exam was Performed: 14:19 - My Orders Last 24 Hours: My Active Orders 08/16/19 13:49 Tibia Fibula Lt [CR] Stat - Assessment/Plan Last 24 Hours: My Active Orders 08/16/19 13:49 Tibia Fibula Lt [CR] Stat
[2019-08-16] MEDS ORDERED: Ibuprofen 800 MG Tab PO ONE (13:49)
[2019-08-16 14:32] VITALS: BP 133/90; PULSE 96
--- NOTE | 2019-08-18 10:54 | CR ---
INDICATION: Pain mid calf. No history of trauma given. LEFT TIB-FIB: Frontal and lateral views of the left tibia and fibula reveal no evidence of a significant bone or joint abnormality. If an occult bony abnormality is suspected clinically, reexamination in 10 to 14 days and/or nuclear bone imaging may be helpful. MTDD
== END 2019-08-16 14:35 | disposition home or self-care (01) ==
LOC: FB.ED 13:15
DX: S86.912A Strain of unspecified muscle(s) and tendon(s) at lower leg level, left leg, initial encounter (principal); E66.9 Obesity, unspecified; M41.9 Scoliosis, unspecified; Z68.36 Body mass index [BMI] 36.0-36.9, adult; Z88.0 Allergy status to penicillin; X58.XXXA Exposure to other specified factors, initial encounter
CPT/HCPCS: 73590; 99283; A9270

== ENCOUNTER 2019-09-27 19:34 | Emergency (ER) | payer MEDICAID ==
--- NOTE | 2019-09-27 19:55 | EDM.PDOC ---
ED HPI GENERAL MEDICAL PROBLEM - General Chief Complaint: Lower Extremity Injury/Pain Stated Complaint: LEFT FOOT PAIN X1 WEEK Time Seen by Provider: 09/27/19 19:54 Source of Information: Reports: Patient History Limitations: Reports: No Limitations - History of Present Illness INITIAL COMMENTS - FREE TEXT/NARRATIVE: 19-year-old female who reports approximately one week ago she was walking out to take the trash to the dumpster and she was looking at a dock and accidentally stepped in a hole in her yard and twisted her left ankle and foot she had immediate pain in her left lateral foot but he seemed to get better after the first 1-2 days. And then beginning a few days after this she reports that the pain seemed to get worse and her pain is now a 7/10. It is a sharp and throbbing pain that is worse with patient and with movement. She finds it difficult to bear weight but she is ambulatory. No ankle pain. She has no knee pain. She did scrape her right knee when she fell but that has healed nicely and she has no pain in her right knee. There were no other injuries. There are no other associated signs or symptoms. There are no other modifying factors. Onset: Other (One week ago) Duration: Getting Worse Location: Reports: Lower Extremity, Left (Left foot) Quality: Reports: Sharp, Throbbing Severity: Moderate Improves with: Reports: Rest Worsens with: Reports: Other (Palpation. Bearing weight.), Movement Context: Reports: Trauma Associated Symptoms: Reports: No Other Symptoms Treatments REGULATORY AFFAIRS SPEC: Reports: Other (see below) (Nothing) left foot Pain Score (Numeric/FACES): 6 - Related Data Allergies Allergy/AdvReac Type Severity Reaction Status Date / Time Penicillins Allergy Difficulty Verified 08/16/19 13:24 Breathing Home Meds: Home Meds Leg Brace [Ankle Brace] 1 each ASDIRECTED #1 each 09/27/19 [Rx] Past Medical History Cardiovascular History: Reports: Other (See Below) Other Cardiovascular History: Hospitalized with hypertension during . 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: Musculoskeletal History: Reports: Arthritis, Fracture, Fibromyalgia, Other (See Below) Other Musculoskeletal History: scoliosis, hx fx R hand Neurological History: Reports: Other (See Below) Other Neuro History: scoliosis Psychiatric History: Reports: ADHD, Anxiety, Depression Other Psychiatric History: depression Endocrine/Metabolic History: Reports: Diabetes, Gestational, Obesity/BMI 30+ Hematologic History: Reports: Blood Transfusion(s) - Past Surgical History HEENT Surgical History: Reports: Adenoidectomy, Tonsillectomy Female Surgical History: Reports: Section Musculoskeletal Surgical History: Reports: Other (See Below) Other Musculoskeletal Surgeries/Procedures:: bilat stretching of ligaments in lower legs Social & Family History - Family History Family Medical History: Noncontributory - Tobacco Use Smoking Status *Q: Unknown Ever Smoked (Nonsmoker) - Caffeine Use Caffeine Use: Reports: Soda Other Caffeine Use: daily - Living Situation & Occupation 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.) Review of Systems - Review of Systems Review Of Systems: See Below Constitutional: Reports: No Symptoms Eyes: Reports: No Symptoms Ears: Reports: No Symptoms Nose: Reports: No Symptoms Mouth/Throat: Reports: No Symptoms Respiratory: Reports: No Symptoms Cardiovascular: Reports: No Symptoms GI/Abdominal: Reports: No Symptoms Genitourinary: Reports: No Symptoms Musculoskeletal: Reports: Foot Pain (Left foot pain) Skin: Reports: No Symptoms Neurological: Reports: No Symptoms Psychiatric: Reports: No Symptoms ED EXAM, GENERAL - Physical Exam Exam: See Below Exam Limited By: No Limitations General Appearance: Alert, WD/WN, Mild Distress, Obese Eye Exam: Bilateral Eye: EOMI, Normal Inspection Ears: Normal External Exam, Hearing Grossly Normal Ear Exam: Bilateral Ear: Auricle Normal Nose: Normal Inspection, Normal Mucosa, No Blood Throat/Mouth: Normal Inspection, Normal Lips, Normal Oropharynx, Normal Voice, No Airway Compromise Head: Atraumatic, Normocephalic Neck: Normal Inspection, Supple, Non-Tender, Full Range of Motion Respiratory/Chest: No Respiratory Distress, Lungs Clear, Normal Breath Sounds, No Accessory Muscle Use, Chest Non-Tender Cardiovascular: Normal Peripheral Pulses, Regular Rate, Rhythm, No Murmur Peripheral Pulses: 2+: Radial (L), Radial (R), Dorsalis Pedis (L), Dorsalis Pedis (R) GI/Abdominal: Normal Bowel Sounds, Soft, Non-Tender Back Exam: Normal Inspection Extremities: Normal Inspection, Normal Range of Motion, No Pedal Edema, Normal Capillary Refill, Other (There is tenderness to palpation over the left lateral midfoot. There is no crepitus or bony deformity. She has no ankle tenderness.) Neurological: Alert, Oriented, CN II-XII Intact, No Motor/Sensory Deficits Skin Exam: Warm, Dry, Intact, Normal Color, No Rash Course - Vital Signs Last Recorded V/S: Last Vital Signs Temp 36.7 C 09/27/19 20:45 Pulse 95 09/27/19 20:45 Resp 16 09/27/19 20:45 BP 117/74 09/27/19 20:45 Pulse Ox 100 09/27/19 20:45 - Orders/Labs/Meds Orders: Active Orders 24 hr Category Date Time Status Foot Comp Min 3V Lt [CR] Stat Exams 09/27/19 19:56 Taken - Radiology Interpretation Free Text/Narrative:: Left foot x-ray shows no definite fracture. - Re-Assessments/Exams Free Text/Narrative Re-Assessment/Exam: 09/27/19 20:42: I saw no definite fracture on the x-ray of her foot. He over the lateral aspect of her midfoot. There is no crepitus or deformity noted here. She does have some mild swelling. There is no erythema or increased warmth in the area. She appears to have a moderate sprain of her left lateral midfoot. I will place her in an Mitch wrap and place her on crutches for the next 2-3 days. I will also give her a prescription for an ASO ankle brace that she may use for comfort and support. She was told to take Tylenol and ibuprofen as needed for pain. She was encouraged to follow-up with her primary provider persisting pain after the 2-3 day period of rest. Precautions and reasons for return to the emergency department were discussed with the patient while she was in the emergency Department for details of the patient's discharge instructions. Departure - Departure Time of Disposition: 20:47 Disposition: Home, Self-Care 01 Condition: Good (Stable) Clinical Impression: Right foot strain Qualifiers: Encounter type: initial encounter Qualified Code(s): S96.911A - Strain of unspecified muscle and tendon at ankle and foot level, right foot, initial encounter - Discharge Information Prescriptions: Leg Brace [Ankle Brace] 1 each ASDIRECTED #1 each Instructions: Crutch Use, Adult, [id number], Foot Sprain Referrals: Manoj Miramontes MD [Primary Care Provider] - Forms: ED Department Discharge Additional Instructions: The x-ray of your left foot showed no definite fracture. You appear to have a strain of the ligaments along the lateral part of your mid foot. Use the Mitch wrap for comfort and support and use crutches with no weightbearing on your left foot for the next 3 days. After 3 days, you may use the ankle brace that I gave you a prescription and begin bearing weight on your left foot again with this brace in place and using your crutches. You may take ibuprofen and Tylenol for pain as needed. If you have pain that is persisting or worsening you should follow-up with your primary provider as you may need additional tests. Back to the emergency department sooner if you develop redness, increased swelling, increased warmth, any signs of infection or any other concerning sign or symptom. Sepsis Event Note (ED) - Evaluation Sepsis Screening Result: No Definite Risk - Focused Exam Vital Signs: Vital Signs Temp Pulse Resp BP Pulse Ox 09/27/19 20:45 36.7 C 95 16 117/74 100 09/27/19 19:34 37.0 C 107 H 17 123/88 97 - My Orders Last 24 Hours: My Active Orders 09/27/19 19:56 Foot Comp Min 3V Lt [CR] Stat - Assessment/Plan Last 24 Hours: My Active Orders 09/27/19 19:56 Foot Comp Min 3V Lt [CR] Stat
[2019-09-27 22:14] VITALS: BP 117/74; PULSE 95
--- NOTE | 2019-09-29 17:50 | CR ---
INDICATION: Fall with injury, pain top of foot. LEFT FOOT: Three views of the left foot were obtained 09/27/19 - no comparisons. There may be some soft tissue swelling at the level of the distal metatarsal shafts dorsally. A definite acute fracture, dislocation or other definite bone or joint abnormality was not identified. If symptoms persist - if occult fracture site is suspected clinically, reexamination 10 to 14 days may be helpful. MTDD
== END 2019-09-27 21:00 | disposition home or self-care (01) ==
LOC: FB.ED 19:34
DX: S96.912A Strain of unspecified muscle and tendon at ankle and foot level, left foot, initial encounter (principal); M41.9 Scoliosis, unspecified; E66.9 Obesity, unspecified; Z88.0 Allergy status to penicillin; Z68.34 Body mass index [BMI] 34.0-34.9, adult; X50.1XXA Overexertion from prolonged static or awkward postures, initial encounter
CPT/HCPCS: 73630-LT; 99283-25

== ENCOUNTER 2019-12-10 20:41 | Emergency (ER) | payer MEDICAID ==
[2019-12-10 20:56] VITALS: BP 140/95; PULSE 105
[2019-12-10] MEDS ORDERED: Acetaminophen 500 MG Tab PO ONE (21:09)
[2019-12-10] MEDS ORDERED: Ibuprofen 800 MG Tab PO ONE (21:09)
--- NOTE | 2019-12-10 21:57 | EDM.PDOC ---
ED HPI GENERAL MEDICAL PROBLEM - General Chief Complaint: Upper Extremity Injury/Pain Stated Complaint: HAND INJURY Time Seen by Provider: 12/10/19 20:55 Source of Information: Reports: Patient History Limitations: Reports: No Limitations - History of Present Illness INITIAL COMMENTS - FREE TEXT/NARRATIVE: Patient presented to the ED because of left hand and wrist injury. She fell and landed on her left hand yesterday. She c/o 7/10 pain. Left Hand Pain Score (Numeric/FACES): 7 - Related Data Allergies Allergy/AdvReac Type Severity Reaction Status Date / Time Penicillins Allergy Difficulty Verified 12/10/19 20:52 Breathing Home Meds: Home Meds DULoxetine [Cymbalta] 60 mg PO DAILY 12/10/19 [History] Past Medical History - Past Health History Medical/Surgical History: Denies Medical/Surgical History Cardiovascular History: Reports: Other (See Below) Other Cardiovascular History: Hospitalized with hypertension during . 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: Musculoskeletal History: Reports: Arthritis, Fracture, Fibromyalgia, Other (See Below) Other Musculoskeletal History: scoliosis, hx fx R hand Neurological History: Reports: Other (See Below) Other Neuro History: scoliosis Psychiatric History: Reports: ADHD, Anxiety, Depression Other Psychiatric History: depression Endocrine/Metabolic History: Reports: Diabetes, Gestational, Obesity/BMI 30+ Hematologic History: Reports: Blood Transfusion(s) - Past Surgical History HEENT Surgical History: Reports: Adenoidectomy, Tonsillectomy Female Surgical History: Reports: Section Musculoskeletal Surgical History: Reports: Other (See Below) Other Musculoskeletal Surgeries/Procedures:: bilat stretching of ligaments in lower legs Social & Family History - Family History Family Medical History: Noncontributory - Tobacco Use Smoking Status *Q: Never Smoker - Caffeine Use Caffeine Use: Reports: Coffee, Soda Other Caffeine Use: daily - Recreational Drug Use Recreational Drug Use: No - Living Situation & Occupation Living situation: Reports: with Significant Other 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.) Review of Systems - Review of Systems Review Of Systems: See Below Constitutional: Reports: No Symptoms Ears: Reports: No Symptoms Nose: Reports: No Symptoms, Previous Injury Respiratory: Reports: No Symptoms Cardiovascular: Reports: No Symptoms GI/Abdominal: Reports: No Symptoms Genitourinary: Reports: No Symptoms Musculoskeletal: Reports: Joint Pain, Joint Swelling Skin: Reports: No Symptoms Neurological: Reports: No Symptoms ED EXAM, GENERAL - Physical Exam Exam: See Below Exam Limited By: No Limitations General Appearance: Alert, No Apparent Distress Eye Exam: Bilateral Eye: PERRL Ears: Normal External Exam Nose: Normal Inspection, Normal Mucosa, No Blood Throat/Mouth: Normal Inspection, Normal Lips, Normal Teeth Head: Atraumatic, Normocephalic Neck: Normal Inspection, Supple, Non-Tender, Full Range of Motion Respiratory/Chest: No Respiratory Distress, Lungs Clear, Normal Breath Sounds Cardiovascular: Normal Peripheral Pulses, Regular Rate, Rhythm, No Edema, No Gallop GI/Abdominal: Normal Bowel Sounds, Soft, Non-Tender, No Organomegaly Back Exam: Normal Inspection Extremities: Normal Inspection, Limited Range of Motion, Other (tenderness and swelling left hand/ wrist) Course - Vital Signs Text/Narrative:: xray left hand-neg ibuprofen 800 mg with tylenol 1000 mg po x1 wrist splint(prefab) applied by ED RN Last Recorded V/S: Last Vital Signs Temp 37.4 C 12/10/19 20:53 Pulse 105 H 12/10/19 20:53 Resp 18 12/10/19 20:53 BP 140/95 H 12/10/19 20:53 Pulse Ox 98 12/10/19 20:53 - Orders/Labs/Meds Orders: Active Orders 24 hr Category Date Time Status Hand Comp Min 3V Lt [CR] Stat Exams 12/10/19 21:08 Taken Meds: Medications Discontinued Medications Generic Name Dose Route Start Last Admin Trade Name Lamberto PRN Reason Stop Dose Admin Acetaminophen 1,000 mg 12/10/19 21:09 12/10/19 21:18 Tylenol Extra Strength PO 12/10/19 21:10 1,000 mg ONETIME ONE Administration Ibuprofen 800 mg 12/10/19 21:09 12/10/19 21:19 Motrin PO 12/10/19 21:10 800 mg ONETIME ONE Administration Departure - Departure Time of Disposition: 21:55 Disposition: Home, Self-Care 01 Condition: Good Clinical Impression: Wrist sprain, Contusion - Discharge Information Instructions: Hand Contusion, Wrist Sprain, Adult, Wrist Splint, Adult Referrals: Manoj Miramontes MD [Primary Care Provider] - Forms: ED Department Discharge Additional Instructions: Please read discharge instructions on wrist sprain and contusion Take ibuprofen 800 mg with tylenol 1000 mg every 8 hours as needed for pain Follow up as needed Sepsis Event Note (ED) - Evaluation Sepsis Screening Result: No Definite Risk - Focused Exam Vital Signs: Vital Signs Temp Pulse Resp BP Pulse Ox 12/10/19 20:53 37.4 C 105 H 18 140/95 H 98 - My Orders Last 24 Hours: My Active Orders 12/10/19 21:08 Hand Comp Min 3V Lt [CR] Stat - Assessment/Plan Last 24 Hours: My Active Orders 12/10/19 21:08 Hand Comp Min 3V Lt [CR] Stat
--- NOTE | 2019-12-11 10:13 | CR ---
INDICATION: Fell with hand and wrist injury - pain base of index finger to wrist. LEFT HAND: Three views of the left hand were obtained 12/10/19 and compared with 09/15/16. An acute fracture, dislocation, or other significant bone or joint abnormality was not identified. If symptoms persist - if occult fracture site is suspected clinically, reexamination in 10-14 days may be helpful. [facility]
== END 2019-12-10 22:03 | disposition home or self-care (01) ==
LOC: FB.ED 20:41
DX: S63.502A Unspecified sprain of left wrist, initial encounter (principal); S60.222A Contusion of left hand, initial encounter; F41.9 Anxiety disorder, unspecified; F32.9 Major depressive disorder, single episode, unspecified; Z79.899 Other long term (current) drug therapy; E66.9 Obesity, unspecified; Z68.36 Body mass index [BMI] 36.0-36.9, adult; Z88.0 Allergy status to penicillin; W18.30XA Fall on same level, unspecified, initial encounter
CPT/HCPCS: 73130; 99283; A9270

== ENCOUNTER 2020-04-12 07:48 | Emergency (ER) | payer MEDICAID ==
[2020-04-12] MEDS: Simethicone 80 MG Tab.Chew PO STA (08:33)
[2020-04-12] MEDS: Magnesium Hydroxide 400 MG/5 ML Susp 30 ML Cup PO ONE (08:33)
[2020-04-12] MEDS: Bisacodyl 10 MG Supp RECTAL ONE (08:33)
[2020-04-12] MEDS: Sodium Chloride 0.9% 1,000 ML IV ONE (08:34)
--- NOTE | 2020-04-12 08:34 | EDM.PDOC ---
ED HPI GENERAL MEDICAL PROBLEM - General Chief Complaint: Abdominal Pain Stated Complaint: LOWER STOMACH PAIN Time Seen by Provider: 04/12/20 08:15 Source of Information: Reports: Patient History Limitations: Reports: No Limitations - History of Present Illness INITIAL COMMENTS - FREE TEXT/NARRATIVE: States she woke about 12am with lower abd pain took tylenol and placed warm p ack on her abdomen, was able to fall asleep but woke about 5am and the pain was worse , tried same and did not help so she came in for evaluation Onset: Today Onset Date: 04/12/20 Onset Time: 12:10 Duration: Hour(s): (8), Getting Worse Location: Reports: Abdomen Quality: Reports: Ache, Dull Severity: Moderate Improves with: Reports: None, Heat Therapy Worsens with: Reports: Eating, Movement Associated Symptoms: Reports: No Other Symptoms Treatments SUPERVISOR LOCOMOTIVE: Reports: Acetaminophen lower mid abdominal Pain Score (Numeric/FACES): 9 - Related Data Allergies Allergy/AdvReac Type Severity Reaction Status Date / Time Penicillins Allergy Difficulty Verified 04/12/20 08:10 Breathing Home Meds: Home Meds DULoxetine [Cymbalta] 60 mg PO BEDTIME 12/10/19 [History] Cranberry Extract [Ellura] 200 mg PO DAILY #30 capsule 04/12/20 [Rx] Gabapentin [Neurontin] 200 mg PO TID 04/12/20 [History] Sulfamethoxazole/Trimethoprim [Bactrim Ds Tablet] 1 each PO BID #14 tablet 04/12/20 [Rx] clonazePAM [Clonazepam] 0.5 mg PO BEDTIME 04/12/20 [History] Past Medical History - Past Health History Medical/Surgical History: Denies Medical/Surgical History Cardiovascular History: Reports: Other (See Below) Other Cardiovascular History: Hospitalized with hypertension during . Genitourinary History: Reports: Pyelonephritis NECK BAND SETTER History: Reports: Other NECK BAND SETTER History: Musculoskeletal History: Reports: Fracture, Fibromyalgia, Other (See Below) Other Musculoskeletal History: scoliosis, hx fx R hand Neurological History: Reports: Other (See Below) Other Neuro History: scoliosis Psychiatric History: Reports: ADHD, Anxiety, Depression Other Psychiatric History: depression Endocrine/Metabolic History: Reports: Diabetes, Gestational, Obesity/BMI 30+ Hematologic History: Reports: Blood Transfusion(s) - Past Surgical History HEENT Surgical History: Reports: Adenoidectomy, Tonsillectomy Cardiovascular Surgical History: Reports: None Female Surgical History: Reports: Section Other Female Surgeries/Procedures: CS x 1 Neurological Surgical History: Reports: None Musculoskeletal Surgical History: Reports: Other (See Below) Other Musculoskeletal Surgeries/Procedures:: bilat stretching of ligaments in lower legs Social & Family History - Family History Family Medical History: No Pertinent Family History - Tobacco Use Tobacco Use Status *Q: Never Tobacco User Second Hand Smoke Exposure: No - Caffeine Use Caffeine Use: Reports: Soda Other Caffeine Use: daily - Recreational Drug Use Recreational Drug Use: No - Living Situation & Occupation Living situation: Reports: with Significant Other 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 Denies: Flatus, Vomiting : Reports: Dysuria, Flank Pain, Pain. Denies: Frequency, Hematuria, Incontinence Musculoskeletal: Reports: No Symptoms Skin: Reports: No Symptoms Neurological: Reports: No Symptoms Psychiatric: Reports: No Symptoms Hematologic/Lymphatic: Reports: No Symptoms Immunologic: Reports: No Symptoms ED EXAM, GI/ABD - Physical Exam Exam: See Below Exam Limited By: No Limitations General Appearance: Alert, WD/WN, No Apparent Distress Eyes: Bilateral: EOMI Ears: Normal External Exam Nose: Normal Inspection Throat/Mouth: Normal Oropharynx Head: Atraumatic, Normocephalic Neck: Supple, Non-Tender Respiratory/Chest: No Respiratory Distress, Lungs Clear Cardiovascular: Regular Rate, Rhythm GI/Abdominal Exam: Soft, Distended, Tender, Abnormal Bowel Sounds (hypoactive BS). No: Guarding, Hernia, Hepatomegaly, Splenomegaly (Female) Exam: Deferred Back Exam: Normal Inspection Extremities: Normal Inspection Neurological: Alert, Oriented, CN II-XII Intact Psychiatric: Normal Affect Skin Exam: Warm, Intact Course - Vital Signs Last Recorded V/S: Last Vital Signs Temp 36.6 C 04/12/20 08:00 Pulse 108 H 04/12/20 08:00 Resp 18 04/12/20 08:00 BP 112/90 04/12/20 08:00 Pulse Ox 96 04/12/20 08:00 - Orders/Labs/Meds Orders: Active Orders 24 hr Category Date Time Status Abdomen 2V AP Flat Upright [CR] Stat Exams 04/12/20 08:21 Taken Sodium Chloride 0.9% [Saline Flush] Med 04/12/20 08:59 Active 10 ml FLUSH ASDIRECTED PRN Peripheral IV Insertion Adult [OM.PC] Routine Oth 04/12/20 08:59 Ordered Medication Orders Sodium Chloride (Saline Flush) 10 ml FLUSH ASDIRECTED PRN PRN Reason: Keep Vein Open Last Admin: 04/12/20 08:55 Dose: 10 ml Documented by: TAYLOR Labs: Laboratory Tests 04/12/20 04/12/20 04/12/20 Range/Units 08:24 08:30 08:30 WBC 7.4 (3.0-10.3) x10-3/uL RBC 4.87 (3.60-5.20) x10(6)uL Hgb 13.0 (11.4-15.5) g/dL Hct 40.1 (34.2-48.2) % MCV 82.3 (76.7-100.5) fL MCH 26.8 (23.9-33.9) pg MCHC 32.5 (31.9-34.8) g/dL RDW 14.3 (12.3-16.5) % Plt Count 264 (151-488) x10(3)uL MPV 8.4 (7.1-12.4) fL Neut % (Auto) 50.9 (30.8-76.2) % Lymph % (Auto) 34.7 (18.4-52.1) % [place] % (Auto) 9.0 (4.4-15.7) % Eos % (Auto) 4.4 (0.6-8.1) % Baso % (Auto) 1.0 (0.2-1.5) % Neut # (Auto) 3.8 (1.5-6.3) x10-3/uL Lymph # (Auto) 2.6 (1.0-4.4) x10-3/uL [place] # (Auto) 0.7 (0.3-1.0) x10-3/uL Eos # (Auto) 0.3 (0.0-0.8) x10-3/uL Baso # (Auto) 0.1 (0.0-0.1) x10-3/uL Sodium 140 (135-145) mmol/L Potassium 3.9 (3.5-5.3) mmol/L Chloride 105 (100-110) mmol/L Carbon Dioxide 25 (21-32) mmol/L BUN 10 (7-18) mg/dL Creatinine 0.7 (0.55-1.02) mg/dL Est Cr Clr Drug Dosing TNP Estimated GFR (MDRD) > 60 (>60) BUN/Creatinine Ratio 14.3 (9-20) Glucose 93 (80-116) mg/dL Calcium 9.5 (8.6-10.2) mg/dL Urine Color Yellow (YELLOW) Urine Appearance Slightly cloudy (CLEAR) Urine pH 7.0 H (5.0-6.5) Ur Specific [place] 1.010 (1.010-1.025) Urine Protein Negative (NEGATIVE) mg/dL Urine Glucose (UA) Normal (NORMAL) mg/dL Urine Ketones Negative (NEGATIVE) mg/dL Urine Occult Blood Negative (NEGATIVE) Urine Nitrite Negative (NEGATIVE) Urine Bilirubin Negative (NEGATIVE) Urine Urobilinogen Normal (NEGATIVE) mg/dL Ur Leukocyte Esterase Moderate H (NEGATIVE) Urine RBC 0-5 (0-5) Urine WBC 20-30 H (0-5) Ur Squamous Epith Cells Few H (NS,R,O) Urine Bacteria Few H (NS) Urine HCG, Qual (NEGATIVE) 04/12/20 Range/Units 08:34 WBC (3.0-10.3) x10-3/uL RBC (3.60-5.20) x10(6)uL Hgb (11.4-15.5) g/dL Hct (34.2-48.2) % MCV (76.7-100.5) fL MCH (23.9-33.9) pg MCHC (31.9-34.8) g/dL RDW (12.3-16.5) % Plt Count (151-488) x10(3)uL MPV (7.1-12.4) fL Neut % (Auto) (30.8-76.2) % Lymph % (Auto) (18.4-52.1) % [place] % (Auto) (4.4-15.7) % Eos % (Auto) (0.6-8.1) % Baso % (Auto) (0.2-1.5) % Neut # (Auto) (1.5-6.3) x10-3/uL Lymph # (Auto) (1.0-4.4) x10-3/uL [place] # (Auto) (0.3-1.0) x10-3/uL Eos # (Auto) (0.0-0.8) x10-3/uL Baso # (Auto) (0.0-0.1) x10-3/uL Sodium (135-145) mmol/L Potassium (3.5-5.3) mmol/L Chloride (100-110) mmol/L Carbon Dioxide (21-32) mmol/L BUN (7-18) mg/dL Creatinine (0.55-1.02) mg/dL Est Cr Clr Drug Dosing Estimated GFR (MDRD) (>60) BUN/Creatinine Ratio (9-20) Glucose (80-116) mg/dL Calcium (8.6-10.2) mg/dL Urine Color (YELLOW) Urine Appearance (CLEAR) Urine pH (5.0-6.5) Ur Specific [place] (1.010-1.025) Urine Protein (NEGATIVE) mg/dL Urine Glucose (UA) (NORMAL) mg/dL Urine Ketones (NEGATIVE) mg/dL Urine Occult Blood (NEGATIVE) Urine Nitrite (NEGATIVE) Urine Bilirubin (NEGATIVE) Urine Urobilinogen (NEGATIVE) mg/dL Ur Leukocyte Esterase (NEGATIVE) Urine RBC (0-5) Urine WBC (0-5) Ur Squamous Epith Cells (NS,R,O) Urine Bacteria (NS) Urine HCG, Qual Negative (NEGATIVE) Meds: Medications Generic Name Dose Route Start Last Admin Trade Name Freq PRN Reason Stop Dose Admin Sodium Chloride 10 ml 04/12/20 08:59 04/12/20 08:55 Saline Flush FLUSH 10 ml ASDIRECTED PRN Administration Keep Vein Open Discontinued Medications Generic Name Dose Route Start Last Admin Trade Name Freq PRN Reason Stop Dose Admin Bisacodyl 10 mg 04/12/20 08:23 04/12/20 08:33 Dulcolax RECTAL 04/12/20 08:24 10 mg ONETIME ONE Administration Sodium Chloride 1,000 mls @ 999 mls/hr 04/12/20 08:23 04/12/20 08:34 Normal Saline IV 04/12/20 09:23 999 mls/hr .BOLUS ONE Administration Ceftriaxone Sodium 1 gm/ 50 mls @ 200 mls/hr 04/12/20 09:09 04/12/20 09:29 Sodium Chloride IV 04/12/20 09:23 200 mls/hr ONETIME ONE Administration Magnesium Hydroxide 30 ml 04/12/20 08:22 04/12/20 08:33 Milk Of Magnesia PO 04/12/20 08:23 30 ml ONETIME ONE Administration Simethicone 160 mg 04/12/20 08:22 04/12/20 08:33 Simethicone PO 04/12/20 08:23 160 mg NOW STA Administration - Re-Assessments/Exams Free Text/Narrative Re-Assessment/Exam: 04/12/20 10:02 pt started on IVF , had UA for UPT and then had Xray of the abd done Noted to have Cystitis and started on IV Rocephin , tolerated well Will be discharged home on increased fluid intake , antibiotics, FU w PCP as needed Departure - Departure Time of Disposition: 10:00 Disposition: Home, Self-Care 01 Clinical Impression: Lower abdominal pain, Cystitis, UTI (urinary tract infection) - Discharge Information *PRESCRIPTION DRUG MONITORING PROGRAM REVIEWED*: Not Applicable *COPY OF PRESCRIPTION DRUG MONITORING REPORT IN PATIENT JUDAH: Not Applicable Prescriptions: Sulfamethoxazole/Trimethoprim [Bactrim Ds Tablet] 1 each PO BID #14 tablet Cranberry Extract [Ellura] 200 mg PO DAILY #30 capsule Instructions: Antibiotic Medicine, Adult, [id number], Constipation, Adult, [id number], Urinary Tract Infection, Adult, [id number] Referrals: Manoj Miramontes MD [Primary Care Provider] - Forms: ED Department Discharge, ED Return to Work/School Form Additional Instructions: 1) Increase fluid intake 2) Take laxative to clear out bowels 3) Follow up with PCP as needed Sepsis Event Note (ED) - Evaluation Sepsis Screening Result: No Definite Risk - Focused Exam Vital Signs: Vital Signs Temp Pulse Resp BP Pulse Ox 04/12/20 08:00 36.6 C 108 H 18 112/90 96 - My Orders Last 24 Hours: My Active Orders 04/12/20 08:21 Abdomen 2V AP Flat Upright [CR] Stat 04/12/20 08:59 Sodium Chloride 0.9% [Saline Flush] 10 ml FLUSH ASDIRECTED PRN Peripheral IV Insertion Adult [OM.PC] Routine - Assessment/Plan Last 24 Hours: My Active Orders 04/12/20 08:21 Abdomen 2V AP Flat Upright [CR] Stat 04/12/20 08:59 Sodium Chloride 0.9% [Saline Flush] 10 ml FLUSH ASDIRECTED PRN Peripheral IV Insertion Adult [OM.PC] Routine
[2020-04-12] MEDS: Sodium Chloride 0.9% 10 ML Syringe FLUSH PRN (08:55)
[2020-04-12] MEDS: cefTRIAXone 1 GM in Sodium Chloride 0.9% 50 ML IV ONE (09:29)
[2020-04-12 12:27] VITALS: BP 112/74; PULSE 89
--- NOTE | 2020-04-12 12:49 | CR ---
INDICATION: Lower abdominal pain. ABDOMEN TWO VIEW: Six images of the abdomen in supine and upright projections were obtained 04/12/20 - no comparisons. Evidence of exogenous obesity is noted. No evidence of free air or definite mechanically obstructive process was identified. However, there is a loop of what appears to be sigmoid colon which is relatively distended rising out the pelvis which could represent an intermittent or partial or early sigmoid volvulus, and should be correlated clinically. There is relative paucity of gas in the more distal colon, but also in the descending colon which may be incidental. Otherwise, no pathologic calcifications, organomegaly, or mass lesions were identified in the abdomen. A moderate dextroconcave rotoscoliosis of the upper middle lumbar spine is noted. IMPRESSION: 1. Cannot exclude the possibility of a sigmoid volvulus either early or partial or intermittent - correlate clinically. 2. Scoliosis. Report was called to Dr. Vale's voice mail at 1229 hours. [facility]
== END 2020-04-12 10:45 | disposition home or self-care (01) ==
LOC: FB.ED 07:48
DX: N30.90 Cystitis, unspecified without hematuria (principal); R10.30 Lower abdominal pain, unspecified; F32.9 Major depressive disorder, single episode, unspecified; F41.9 Anxiety disorder, unspecified; E66.9 Obesity, unspecified; Z68.36 Body mass index [BMI] 36.0-36.9, adult; Z88.0 Allergy status to penicillin; Z79.899 Other long term (current) drug therapy
CPT/HCPCS: 36415; 74019; 80048; 81001; 81025; 85025; 96365; 99284-25; A9270-GY; J0696; J7030

== ENCOUNTER 2020-06-10 20:45 | Emergency (ER) | payer MEDICAID ==
[2020-06-10] MEDS ORDERED: Sodium Chloride 0.9% 1,000 ML IV ONE (21:04)
[2020-06-10] MEDS ORDERED: hydrOXYzine HCl 50 MG/ML SDV IM ONE (21:04)
[2020-06-10] MEDS ORDERED: Ondansetron 4 MG/2 ML SDV IVPUSH ONE (21:04)
[2020-06-10] MEDS ORDERED: Ketorolac 30 MG/ML SDV IVPUSH ONE (21:04)
--- NOTE | 2020-06-10 21:12 | EDM.PDOC ---
ED HPI GENERAL MEDICAL PROBLEM - General Chief Complaint: General Stated Complaint: PASSED OUT Time Seen by Provider: 06/10/20 20:55 Source of Information: Reports: Patient, Family History Limitations: Reports: No Limitations - History of Present Illness INITIAL COMMENTS - FREE TEXT/NARRATIVE: c/o anxiety and possible syncope pt on clonazepam qhs x 2m from a sleep doctor in [place], ran out 2d ago, has one more refill not working, watches 1 yo taking gabapentin, ran out of clonazepam and duloxetine h/o anxiety, quite anxious now had inc'd anxiety today, was lying prone on kitchen floor when guzman got home from work, 1 yo was playing with pens beside her now has some nausea and BARRAZA up at 7a, ate bfast, had mac and cheese at 3p with her child, not had supper, wants for guzman to get home to eat supper had water and 2 sodas to drink today - Related Data Allergies Allergy/AdvReac Type Severity Reaction Status Date / Time Penicillins Allergy Difficulty Verified 06/10/20 22:16 Breathing Home Meds: Home Meds DULoxetine [Cymbalta] 60 mg PO BEDTIME 12/10/19 [History] Cranberry Extract [Ellura] 200 mg PO DAILY #30 capsule 04/12/20 [Rx] Gabapentin [Neurontin] 200 mg PO TID 04/12/20 [History] clonazePAM [Clonazepam] 0.5 mg PO BEDTIME 04/12/20 [History] Past Medical History - Past Health History Medical/Surgical History: Denies Medical/Surgical History Cardiovascular History: Reports: Other (See Below) Other Cardiovascular History: Hospitalized with hypertension during . 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 History: Musculoskeletal History: Reports: Fracture, Fibromyalgia, Other (See Below) Other Musculoskeletal History: scoliosis, hx fx R hand Neurological History: Reports: Other (See Below) Other Neuro History: scoliosis Psychiatric History: Reports: ADHD, Anxiety, Depression Other Psychiatric History: depression Endocrine/Metabolic History: Reports: Diabetes, Gestational, Obesity/BMI 30+ Hematologic History: Reports: Blood Transfusion(s) - Past Surgical History HEENT Surgical History: Reports: Adenoidectomy, Tonsillectomy Cardiovascular Surgical History: Reports: None Female Surgical History: Reports: Section Other Female Surgeries/Procedures: CS x 1 Neurological Surgical History: Reports: None Musculoskeletal Surgical History: Reports: Other (See Below) Other Musculoskeletal Surgeries/Procedures:: bilat stretching of ligaments in lower legs Social & Family History - Family History Family Medical History: No Pertinent Family History - Caffeine Use Caffeine Use: Reports: Soda Other Caffeine Use: daily - Living Situation & Occupation Living situation: Reports: with Significant Other 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 Denies: Fever, Chills, Malaise, Weakness HEENT: Reports: No Symptoms Respiratory: Reports: No Symptoms Cardiovascular: Reports: No Symptoms Endocrine: Reports: No Symptoms GI/Abdominal: Reports: Nausea : Reports: No Symptoms Musculoskeletal: Reports: No Symptoms Skin: Reports: No Symptoms Neurological: Reports: No Symptoms Psychiatric: Reports: Anxiety Hematologic/Lymphatic: Reports: No Symptoms Immunologic: Reports: No Symptoms ED EXAM, GENERAL - Physical Exam Exam: See Below Exam Limited By: No Limitations General Appearance: Alert, WD/WN, Other (visibly anxious even with boyfriend in room) Eye Exam: Bilateral Eye: EOMI, PERRL Ears: Normal External Exam, Hearing Grossly Normal Nose: Normal Inspection, Normal Mucosa, No Blood Throat/Mouth: Normal Voice, No Airway Compromise Head: Atraumatic, Normocephalic Neck: Normal Inspection, Supple, Non-Tender, Full Range of Motion. No: Lymphadenopathy (R), Lymphadenopathy (L) Respiratory/Chest: No Respiratory Distress, Lungs Clear, Normal Breath Sounds, Chest Non-Tender Cardiovascular: Regular Rate, Rhythm, No Edema, No Murmur GI/Abdominal: Normal Bowel Sounds, Soft, Non-Tender, No Distention Back Exam: Normal Inspection, Full Range of Motion, NT Extremities: Normal Inspection, Normal Range of Motion, Non-Tender, No Pedal Edema Neurological: Alert, Oriented, CN II-XII Intact, Normal Cognition, Normal Gait, No Motor/Sensory Deficits Psychiatric: Other (very anxious, slightly tremulous from anxiety) Skin Exam: Warm, Dry, Intact, Normal Color, No Rash Lymphatic: No Adenopathy Course - Vital Signs Last Recorded V/S: Last Vital Signs Temp 36.6 C 06/10/20 20:50 Pulse 91 06/10/20 20:50 Resp 18 02/25/21 20:50 BP 128/82 06/10/20 20:50 Pulse Ox 98 06/10/20 20:50 Orthostatic Blood Pressure [ 126/83 Standing] Orthostatic Blood Pressure [ 132/80 Sitting] Orthostatic Blood Pressure [ 130/78 Supine] - Orders/Labs/Meds Orders: Active Orders 24 hr Category Date Time Status Orthostatic Vital Signs [RC] ASDIRECTED Care 06/10/20 21:06 Active Labs: Laboratory Tests 06/10/20 06/10/20 06/10/20 Range/Units 21:10 21:20 21:20 WBC 11.2 H (3.0-10.3) x10-3/uL RBC 4.99 (3.60-5.20) x10(6)uL Hgb 13.3 (11.4-15.5) g/dL Hct 42.1 (34.2-48.2) % MCV 84.4 (76.7-100.5) fL MCH 26.7 (23.9-33.9) pg MCHC 31.6 L (31.9-34.8) g/dL RDW 14.1 (12.3-16.5) % Plt Count 275 (151-488) x10(3)uL MPV 8.4 (7.1-12.4) fL Neut % (Auto) 60.0 (30.8-76.2) % Lymph % (Auto) 29.5 (18.4-52.1) % [place] % (Auto) 7.9 (4.4-15.7) % Eos % (Auto) 1.9 (0.6-8.1) % Baso % (Auto) 0.7 (0.2-1.5) % Neut # (Auto) 6.7 H (1.5-6.3) x10-3/uL Lymph # (Auto) 3.3 (1.0-4.4) x10-3/uL [place] # (Auto) 0.9 (0.3-1.0) x10-3/uL Eos # (Auto) 0.2 (0.0-0.8) x10-3/uL Baso # (Auto) 0.1 (0.0-0.1) x10-3/uL Sodium 138 (135-145) mmol/L Potassium 3.8 (3.5-5.3) mmol/L Chloride 102 (100-110) mmol/L Carbon Dioxide 27 (21-32) mmol/L BUN 9 (7-18) mg/dL Creatinine 0.8 (0.55-1.02) mg/dL Est Cr Clr Drug Dosing TNP Estimated GFR (MDRD) > 60 (>60) BUN/Creatinine Ratio 11.3 (9-20) Glucose 118 H (80-116) mg/dL Calcium 8.7 (8.6-10.2) mg/dL Total Bilirubin 0.2 (0.1-1.3) mg/dL AST 16 D (5-25) IU/L ALT 26 D (12-36) U/L Alkaline Phosphatase 90 (56-112) IU/L Total Protein 7.7 (6.0-8.0) g/dL Albumin 3.5 (3.5-5.2) g/dL Globulin 4.2 g/dL Albumin/Globulin Ratio 0.8 Urine Color Yellow (YELLOW) Urine Appearance Clear (CLEAR) Urine pH 7.0 H (5.0-6.5) Ur Specific [place] 1.015 (1.010-1.025) Urine Protein Negative (NEGATIVE) mg/dL Urine Glucose (UA) Normal (NORMAL) mg/dL Urine Ketones Negative (NEGATIVE) mg/dL Urine Occult Blood Negative (NEGATIVE) Urine Nitrite Negative (NEGATIVE) Urine Bilirubin Negative (NEGATIVE) Urine Urobilinogen Normal (NEGATIVE) mg/dL Ur Leukocyte Esterase Negative (NEGATIVE) Urine RBC 0-5 (0-5) Urine WBC 0-5 (0-5) Ur Squamous Epith Cells Few H (NS,R,O) Urine Bacteria Rare H (NS) Meds: Medications Discontinued Medications Generic Name Dose Route Start Last Admin Trade Name Freq PRN Reason Stop Dose Admin Hydroxyzine HCl 50 mg 06/10/20 21:04 06/10/20 21:14 Vistaril IM 06/10/20 21:05 50 mg ONETIME ONE Administration Sodium Chloride 1,000 mls @ 999 mls/hr 06/10/20 21:04 06/10/20 21:25 Normal Saline IV 06/10/20 22:04 999 mls/hr .BOLUS ONE Administration Ketorolac Tromethamine 30 mg 06/10/20 21:04 06/10/20 21:32 Toradol IVPUSH 06/10/20 21:05 30 mg ONETIME ONE Administration Ondansetron HCl 4 mg 06/10/20 21:04 06/10/20 21:27 Zofran IVPUSH 06/10/20 21:05 4 mg ONETIME ONE Administration - Re-Assessments/Exams Free Text/Narrative Re-Assessment/Exam: 06/10/20 22:26 pt feeling much better, BARRAZA and N gone, in good spirits pt appears to have been overly tired and did not have a true syncopal episode, was quite anxious here with an acute stress reaction has had chronic sleep disturbance exacerbated by being off of clonzaepam 0.5 mg qhs and duloxetine x 24h MPMP shows 3 fills of clonazepam 0.5 mg #30, last fill 05-04-20 pt reports that she has ADHD and that PCP Dr Miramontes stopped her ADHD meds when he started the duloxetine pt had a sleep study in [place] and was told her brain is firing 10 times a time and that the clonazepam was rx'ed for that reason Departure - Departure Time of Disposition: 22:22 Disposition: Home, Self-Care 01 Condition: Good Clinical Impression: Disturbed sleep rhythm, Hypersomnolence, Tension headache, Acute anxiety - Discharge Information *PRESCRIPTION DRUG MONITORING PROGRAM REVIEWED*: Not Applicable *COPY OF PRESCRIPTION DRUG MONITORING REPORT IN PATIENT JUDAH: Not Applicable Instructions: Hypersomnia Referrals: Manoj Miramontes MD [Primary Care Provider] - Forms: ED Department Discharge Additional Instructions: Trying to establish a better sleep-wake cycle can help, which your doctors are trying to do. Be consistent with your sleep patterns as much as possible, including going to bed and getting up at the same day. Take a short nap or at least rest for 15 minutes when your child takes a nap. See Dr Miramontes in the next few days. Return to ED if you are feeling worse or have additional symptoms. Eat 3 meals a day without overeating or skipping meals. Maintain fluids. Sepsis Event Note (ED) - Focused Exam Vital Signs: Vital Signs Temp Pulse Resp BP Pulse Ox 06/10/20 20:50 36.6 C 91 18 128/82 98 - My Orders Last 24 Hours: My Active Orders 06/10/20 21:06 Orthostatic Vital Signs [RC] ASDIRECTED - Assessment/Plan Last 24 Hours: My Active Orders 06/10/20 21:06 Orthostatic Vital Signs [RC] ASDIRECTED
[2020-06-10 22:26] VITALS: BP 134/85; PULSE 84
== END 2020-06-10 22:35 | disposition home or self-care (01) ==
LOC: FB.ED 20:45
DX: F41.9 Anxiety disorder, unspecified (principal); G44.209 Tension-type headache, unspecified, not intractable; R40.0 Somnolence; G47.20 Circadian rhythm sleep disorder, unspecified type; E66.9 Obesity, unspecified; Z68.36 Body mass index [BMI] 36.0-36.9, adult; Z88.0 Allergy status to penicillin; Z79.899 Other long term (current) drug therapy
CPT/HCPCS: 36415; 80053; 81001; 85025; 96372; 96374; 96375; 99284; J1885; J2405; J3410; J7030

== ENCOUNTER 2020-08-30 06:11 | Emergency (ER) | payer MEDICAID ==
[2020-08-30] MEDS ORDERED: hydrOXYzine HCl 50 MG/ML SDV IM ONE (06:40)
[2020-08-30] MEDS ORDERED: Alum Hydroxide/Mag Hydroxide 30 ML, Lidocaine 2% 15 ML PO ONE ×2 (06:40)
--- NOTE | 2020-08-30 06:47 | EDM.PDOC ---
ED HPI GENERAL MEDICAL PROBLEM - General Chief Complaint: Chest Pain Stated Complaint: CHEST PAIN Time Seen by Provider: 08/30/20 06:25 Source of Information: Reports: Patient History Limitations: Reports: No Limitations - History of Present Illness INITIAL COMMENTS - FREE TEXT/NARRATIVE: c/o chest and back pain pt awoke with pain in her lower sternum and midback, hyperventilating, having a panic attack took no meds for her sxs, says she is no longer on meds for anxiety, not seen PCP Dr Miramontes in over a yr problem list with over 20 pain c/o's has a preschool son at home EKG with ST c/w panic attack and no change c/w 12-23-18 upper back radiating to chest Pain Score (Numeric/FACES): 10 - Related Data Allergies Allergy/AdvReac Type Severity Reaction Status Date / Time Penicillins Allergy Difficulty Verified 06/10/20 22:16 Breathing Home Meds: Home Meds DULoxetine [Cymbalta] 60 mg PO BEDTIME 12/10/19 [History] Gabapentin [Neurontin] 200 mg PO TID 04/12/20 [History] clonazePAM [Clonazepam] 0.5 mg PO BEDTIME 04/12/20 [History] Past Medical History - Past Health History Medical/Surgical History: Denies Medical/Surgical History Cardiovascular History: Reports: Other (See Below) Other Cardiovascular History: Hospitalized with hypertension during . Genitourinary History: Reports: Pyelonephritis DEPOT AGENT History: Reports: Other DEPOT AGENT History: Musculoskeletal History: Reports: Fracture, Fibromyalgia, Other (See Below) Other Musculoskeletal History: Scoliosis. History of fracture to right hand. Neurological History: Reports: Other (See Below) Other Neuro History: Scoliosis. Psychiatric History: Reports: ADHD, Anxiety, Depression Other Psychiatric History: Depression. depression. General anxiety disorder. Endocrine/Metabolic History: Reports: Diabetes, Gestational, Obesity/BMI 30+ Hematologic History: Reports: Blood Transfusion(s) - Past Surgical History HEENT Surgical History: Reports: Adenoidectomy, Tonsillectomy Cardiovascular Surgical History: Reports: None Female Surgical History: Reports: Section Other Female Surgeries/Procedures: CS x 1 Neurological Surgical History: Reports: None Musculoskeletal Surgical History: Reports: Other (See Below) Other Musculoskeletal Surgeries/Procedures:: bilat stretching of ligaments in lower legs Social & Family History - Family History Family Medical History: No Pertinent Family History - Tobacco Use Tobacco Use Status *Q: Never Tobacco User - Caffeine Use Caffeine Use: Reports: Soda Other Caffeine Use: daily - Living Situation & Occupation Living situation: Reports: with Significant Other 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.) ED ROS GENERAL - Review of Systems Review Of Systems: See Below Constitutional: Reports: No Symptoms HEENT: Reports: No Symptoms Respiratory: Reports: No Symptoms Cardiovascular: Reports: Chest Pain Endocrine: Reports: No Symptoms GI/Abdominal: Reports: No Symptoms : Reports: No Symptoms Musculoskeletal: Reports: No Symptoms Skin: Reports: No Symptoms Neurological: Reports: No Symptoms Psychiatric: Reports: No Symptoms Hematologic/Lymphatic: Reports: No Symptoms Immunologic: Reports: No Symptoms ED EXAM, GENERAL - Physical Exam Exam: See Below Exam Limited By: No Limitations General Appearance: Alert, WD/WN, Anxious Ears: Normal External Exam, Hearing Grossly Normal Ear Exam: Bilateral Ear: Auricle Normal, Canal Normal, TM normal Nose: Normal Inspection Throat/Mouth: Normal Inspection, Normal Lips, Normal Voice, No Airway Compromise Head: Atraumatic, Normocephalic Neck: Normal Inspection, Supple, Non-Tender, Full Range of Motion Respiratory/Chest: No Respiratory Distress, Lungs Clear, Normal Breath Sounds, No Accessory Muscle Use, Chest Non-Tender Cardiovascular: Normal Peripheral Pulses, Regular Rate, Rhythm, No Edema, No Gallop, No Murmur, No Rub GI/Abdominal: Soft, Non-Tender, No Distention Back Exam: Normal Inspection Extremities: Normal Inspection, Normal Range of Motion, Non-Tender, No Pedal Edema Neurological: Alert, Oriented, CN II-XII Intact, Normal Cognition, Normal Gait, Normal Reflexes, No Motor/Sensory Deficits Psychiatric: Other (very anxious, hyperventilating, did slow breathing down some when requested) Skin Exam: Warm, Dry, Intact, Normal Color, No Rash Lymphatic: No Adenopathy #1 Interpretation EKG Date: 08/30/20 Time: 06:19 Hickman: Normal P-Wave: Present QRS: Normal QT: Normal Comparison: No Change EKG Interpretation Comments: no acute change, no ischemia, no CVD Course - Vital Signs Last Recorded V/S: Last Vital Signs Temp 36.7 C 08/30/20 06:11 Pulse 90 08/30/20 07:11 Resp 16 08/30/20 07:11 BP 132/89 08/30/20 07:11 Pulse Ox 97 08/30/20 07:11 - Orders/Labs/Meds Orders: Active Orders 24 hr Category Date Time Status EKG Documentation Completion [RC] ASDIRECTED Care 08/30/20 06:53 Active EKG 12 Lead [EK] Routine Ther 08/30/20 06:52 Ordered Labs: Laboratory Tests 08/30/20 Range/Units 06:50 Troponin I 13.0 (4.0-60.3) pg/mL Meds: Medications Discontinued Medications Generic Name Dose Route Start Last Admin Trade Name Lamberto PRN Reason Stop Dose Admin Al Hydroxide/Mg Hydroxide 30 0 ml 08/30/20 06:40 08/30/20 06:44 ml/ Lidocaine HCl 15 ml PO 08/30/20 06:41 45 ml ONETIME ONE Administration Hydroxyzine HCl 50 mg 08/30/20 06:40 08/30/20 06:46 Hydroxyzine Hcl 50 Mg/Ml Sdv IM 08/30/20 06:41 50 mg ONETIME ONE Administration - Re-Assessments/Exams Free Text/Narrative Re-Assessment/Exam: 08/30/20 06:45 no insight into sxs, no tx at home, 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 Take ibuprofen 200 mg 4 tabs 3 times a day for 2 days. Take liquid antacid 30 ml every 4 hours as needed. Get adequate rest. See Dr Miramontes in 2-3 days for further recommendations. Sepsis Event Note (ED) - Evaluation Sepsis Screening Result: No Definite Risk - Focused Exam Vital Signs: Vital Signs Temp Pulse Resp BP Pulse Ox 08/30/20 07:11 90 16 132/89 97 08/30/20 06:11 36.7 C 111 H 32 H 134/89 99 - My Orders Last 24 Hours: My Active Orders 08/30/20 06:52 EKG 12 Lead [EK] Routine 08/30/20 06:53 EKG Documentation Completion [RC] ASDIRECTED - Assessment/Plan Last 24 Hours: My Active Orders 08/30/20 06:52 EKG 12 Lead [EK] Routine 08/30/20 06:53 EKG Documentation Completion [RC] ASDIRECTED
[2020-08-30 07:12] VITALS: BP 132/89; PULSE 90
== END 2020-08-30 07:32 | disposition home or self-care (01) ==
LOC: FB.ED 06:11
DX: S29.012A Strain of muscle and tendon of back wall of thorax, initial encounter (principal); F41.0 Panic disorder [episodic paroxysmal anxiety]; K21.9 Gastro-esophageal reflux disease without esophagitis; E66.9 Obesity, unspecified; Z68.36 Body mass index [BMI] 36.0-36.9, adult; Z79.899 Other long term (current) drug therapy; Z88.0 Allergy status to penicillin; X58.XXXA Exposure to other specified factors, initial encounter
CPT/HCPCS: 36415; 84484; 93005; 96372; 99285; A9270; J3410

== ENCOUNTER 2020-10-21 18:29 | Emergency (ER) | payer MEDICAID ==
[2020-10-21 19:13] VITALS: BP 127/81; PULSE 99
--- NOTE | 2020-10-21 19:25 | EDM.PDOC ---
ED HPI GENERAL MEDICAL PROBLEM - General Chief Complaint: Lower Extremity Injury/Pain Stated Complaint: ANKLE INJURY Time Seen by Provider: 10/21/20 18:30 Source of Information: Reports: Patient History Limitations: Reports: No Limitations - History of Present Illness INITIAL COMMENTS - FREE TEXT/NARRATIVE: Patient presented to the ED because of rt foot and ankle pain. She use her foot to close a folding chair and her anlle got caught and is now hurting. Right Feet Pain Score (Numeric/FACES): 7 - Related Data Allergies Allergy/AdvReac Type Severity Reaction Status Date / Time Penicillins Allergy Difficulty Verified 06/10/20 22:16 Breathing Home Meds: Home Meds DULoxetine [Cymbalta] 60 mg PO BEDTIME 12/10/19 [History] Gabapentin [Neurontin] 200 mg PO TID 04/12/20 [History] clonazePAM [Clonazepam] 0.5 mg PO BEDTIME 04/12/20 [History] Past Medical History - Past Health History Medical/Surgical History: Denies Medical/Surgical History Cardiovascular History: Reports: Other (See Below) Other Cardiovascular History: Hospitalized with hypertension during . Genitourinary History: Reports: Pyelonephritis MANAGER PARTY History: Reports: Other MANAGER PARTY History: Musculoskeletal History: Reports: Fracture, Fibromyalgia, Other (See Below) Other Musculoskeletal History: Scoliosis. History of fracture to right hand. Neurological History: Reports: Other (See Below) Other Neuro History: Scoliosis. Psychiatric History: Reports: ADHD, Anxiety, Depression Other Psychiatric History: Depression. depression. General anxiety disorder. Endocrine/Metabolic History: Reports: Diabetes, Gestational, Obesity/BMI 30+ Hematologic History: Reports: Blood Transfusion(s) - Past Surgical History HEENT Surgical History: Reports: Adenoidectomy, Tonsillectomy Cardiovascular Surgical History: Reports: None Female Surgical History: Reports: Section Other Female Surgeries/Procedures: CS x 1 Neurological Surgical History: Reports: None Musculoskeletal Surgical History: Reports: Other (See Below) Other Musculoskeletal Surgeries/Procedures:: bilat stretching of ligaments in lower legs Social & Family History - Family History Family Medical History: No Pertinent Family History - Tobacco Use Tobacco Use Status *Q: Never Tobacco User - Caffeine Use Caffeine Use: Reports: Coffee, Soda Other Caffeine Use: daily - Recreational Drug Use Recreational Drug Use: No - Living Situation & Occupation Living situation: Reports: with Significant Other 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.) Review of Systems - Review of Systems Review Of Systems: See Below Constitutional: Reports: No Symptoms Eyes: Reports: No Symptoms Ears: Reports: No Symptoms Nose: Reports: No Symptoms Mouth/Throat: Reports: No Symptoms Respiratory: Reports: No Symptoms Cardiovascular: Reports: No Symptoms GI/Abdominal: Reports: No Symptoms Genitourinary: Reports: No Symptoms Musculoskeletal: Reports: No Symptoms, Joint Pain, Joint Swelling Skin: Reports: No Symptoms Neurological: Reports: No Symptoms Psychiatric: Reports: No Symptoms ED EXAM, GENERAL - Physical Exam Exam: See Below Exam Limited By: No Limitations General Appearance: Alert, No Apparent Distress Eye Exam: Bilateral Eye: PERRL Ears: Normal External Exam, Normal Canal Nose: Normal Inspection, Normal Mucosa, No Blood Throat/Mouth: Normal Inspection, Normal Lips, Normal Teeth Head: Atraumatic, Normocephalic Neck: Normal Inspection, Supple, Non-Tender, Full Range of Motion Respiratory/Chest: No Respiratory Distress, Lungs Clear, Normal Breath Sounds, No Accessory Muscle Use, Chest Non-Tender Cardiovascular: Normal Peripheral Pulses, Regular Rate, Rhythm, No Edema, No Gallop GI/Abdominal: Normal Bowel Sounds, Soft, Non-Tender, No Organomegaly Back Exam: Normal Inspection, Full Range of Motion Extremities: Limited Range of Motion, Other (tenderness and swellling lateral aspect of rt footand ankle) Neurological: Alert, Oriented, CN II-XII Intact Course - Vital Signs Text/Narrative:: Xray Rt ankle/foot-negative Ibuprofen 800 mg po x1 Tylenol 1000 mg PO x1 Last Recorded V/S: Last Vital Signs Temp 37.7 C 10/21/20 18:29 Pulse 99 10/21/20 18:29 Resp 20 10/21/20 18:29 BP 127/81 10/21/20 18:29 Pulse Ox 98 10/21/20 18:29 - Orders/Labs/Meds Orders: Active Orders 24 hr Category Date Time Status Foot Comp Min 3V Rt [CR] Stat Exams 10/21/20 18:45 Taken Meds: Medications Discontinued Medications Generic Name Dose Route Start Last Admin Trade Name Freq PRN Reason Stop Dose Admin Acetaminophen 1,000 mg 10/21/20 19:29 10/21/20 19:38 Acetaminophen 500 Mg Tab PO 10/21/20 19:30 1,000 mg NOW STA Administration Ibuprofen 800 mg 10/21/20 19:29 10/21/20 19:39 Ibuprofen 800 Mg Tab PO 10/21/20 19:30 800 mg NOW STA Administration Departure - Departure Time of Disposition: 20:00 Disposition: Home, Self-Care 01 Condition: Good Clinical Impression: Ankle sprain - Discharge Information Instructions: Ankle Sprain, [id number] Referrals: PCP,None [Primary Care Provider] - Forms: ED Department Discharge Additional Instructions: Please read discharge instructions on ankle sprain Apply ice, elevate Use your crutches until your pain is gone Take ibuprofen 800 mg with tylenol 2000 mg every 8 hours as needed for pain We will call you if there is any changes on your xray reading Follow up as needed Sepsis Event Note (ED) - Evaluation Sepsis Screening Result: No Definite Risk - Focused Exam Vital Signs: Vital Signs Temp Pulse Resp BP Pulse Ox 10/21/20 18:29 37.7 C 99 20 127/81 98 - My Orders Last 24 Hours: My Active Orders 10/21/20 18:45 Foot Comp Min 3V Rt [CR] Stat - Assessment/Plan Last 24 Hours: My Active Orders 10/21/20 18:45 Foot Comp Min 3V Rt [CR] Stat
[2020-10-21] MEDS ORDERED: Acetaminophen 500 MG Tab PO STA (19:29)
[2020-10-21] MEDS ORDERED: Ibuprofen 800 MG Tab PO STA (19:29)
--- NOTE | 2020-10-22 11:02 | CR ---
INDICATION: Right foot pain - post trauma to right foot instep area after tripping. RIGHT FOOT: Three views of the right foot were obtained 10/22/20 - no comparisons. No significant bone or joint abnormality was identified. If symptoms persist - if occult bone abnormality is suspected clinically, repeat examination in 10-14 days, or possibly more advanced imaging, may be helpful. [facility]
== END 2020-10-21 19:44 | disposition home or self-care (01) ==
LOC: FB.ED 18:29
DX: S93.401A Sprain of unspecified ligament of right ankle, initial encounter (principal); E66.9 Obesity, unspecified; Z68.36 Body mass index [BMI] 36.0-36.9, adult; Z88.0 Allergy status to penicillin; Z79.899 Other long term (current) drug therapy; W23.0XXA Caught, crushed, jammed, or pinched between moving objects, initial encounter
CPT/HCPCS: 73630; 99283; A9270

== ENCOUNTER 2021-04-04 07:38 | Emergency (ER) | payer MEDICAID ==
[2021-04-04 07:50] VITALS: BP 134/90; PULSE 109
--- NOTE | 2021-04-04 08:10 | EDM.PDOC ---
ED HPI GENERAL MEDICAL PROBLEM - General Chief Complaint: Burn Stated Complaint: BURNED WITH HAIR REMOVAL CREAM Time Seen by Provider: 04/04/21 08:05 Source of Information: Reports: Patient History Limitations: Reports: No Limitations - History of Present Illness INITIAL COMMENTS - FREE TEXT/NARRATIVE: 20-year-old female who presents to the emergency department via private vehicle complaining of burning in her perineal area and perivaginal area. She reports that she used Lang hair removal cream on her perineal area last night and also shaved the area and she has some burning at the time and she washed the area completely with copious amounts of water but still had some burning in the area and she reports that burning has gotten worse overnight. She has noted a rash on her mons pubis area with some open wounds on the skin. She has not had any fevers. There has been no difficulty breathing. She does report that the pain is a 7/10 and it is burning. Nothing seems to make the pain better or worse. No discharge. No dysuria or hematuria. There are no other associated signs or symptoms. There are no other modifying factors. Onset: Other (04/03/2021) Duration: Getting Worse Location: Reports: Other (Perineal area) Quality: Reports: Burning Severity: Moderate Improves with: Reports: None Worsens with: Reports: None Context: Reports: Other (As above.) Associated Symptoms: Reports: No Other Symptoms (Except as above.) Treatments SUBSTANCE ABUSE RN: Reports: Other (see below) (Nothing.) Vaginal Pain Score (Numeric/FACES): 6 - Related Data Allergies Allergy/AdvReac Type Severity Reaction Status Date / Time Penicillins Allergy Difficulty Verified 06/10/20 22:16 Breathing Home Meds: Home Meds DULoxetine [Cymbalta] 60 mg PO BEDTIME 12/10/19 [History] Gabapentin [Neurontin] 200 mg PO TID 04/12/20 [History] clonazePAM [Clonazepam] 0.5 mg PO BEDTIME 04/12/20 [History] Hydrocortisone [Hydrocortisone 2.5% Crm] 30 gm TP BID #1 tube 04/04/21 [Rx] Mupirocin Oint [Bactroban Oint] 22 gm TP BID #1 tube 04/04/21 [Rx] Past Medical History Cardiovascular History: Reports: Other (See Below) Other Cardiovascular History: Hospitalized with hypertension during . 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 History of fracture to right hand. Psychiatric History: Reports: ADHD, Anxiety, Depression Other Psychiatric History: Depression. depression. General anxiety disorder. Endocrine/Metabolic History: Reports: Diabetes, Gestational, Obesity/BMI 30+ Hematologic History: Reports: Blood Transfusion(s) - Infectious Disease History Infectious Disease History: Reports: None - Past Surgical History HEENT Surgical History: Reports: Adenoidectomy, Tonsillectomy Female Surgical History: Reports: Section Other Female Surgeries/Procedures: CS x 1 Musculoskeletal Surgical History: Reports: Other (See Below) Other Musculoskeletal Surgeries/Procedures:: bilat stretching of ligaments in lower legs Social & Family History - Tobacco Use Tobacco Use Status *Q: Never Tobacco User - Caffeine Use Caffeine Use: Reports: None Other Caffeine Use: daily - Alcohol Use Alcohol Use Frequency: Monthly (Maybe once a month.) - Living Situation & Occupation Living situation: Reports: with Significant Other 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.) ED ROS GENERAL - Review of Systems Review Of Systems: See Below Constitutional: Denies: Fever, Chills, Weakness HEENT: Denies: Throat Pain, Throat Swelling Respiratory: Denies: Shortness of Breath, Cough Cardiovascular: Denies: Chest Pain, Palpitations GI/Abdominal: Denies: Nausea, Vomiting : Denies: Dysuria, Hematuria Musculoskeletal: Denies: Neck Pain, Back Pain Skin: Reports: Rash, Wound (Excoriations on her mons pubis area.) Neurological: Denies: Dizziness, Headache Psychiatric: Reports: Anxiety Hematologic/Lymphatic: Denies: Easy Bleeding, Easy Bruising ED EXAM, GENERAL - Physical Exam Exam: See Below Exam Limited By: No Limitations General Appearance: Alert, No Apparent Distress, Obese, Other (Nontoxic.) Eye Exam: Bilateral Eye: EOMI, Normal Inspection, PERRL Ears: Normal External Exam, Hearing Grossly Normal Ear Exam: Bilateral Ear: Auricle Normal Nose: Normal Inspection, Normal Mucosa, No Blood Throat/Mouth: Normal Inspection, Normal Lips, Normal Oropharynx, Normal Voice, No Airway Compromise Head: Atraumatic, Normocephalic Neck: Normal Inspection, Supple, Non-Tender, Full Range of Motion Respiratory/Chest: No Respiratory Distress, Lungs Clear, Normal Breath Sounds, No Accessory Muscle Use, Chest Non-Tender Cardiovascular: Normal Peripheral Pulses, Regular Rate, Rhythm, No Murmur Peripheral Pulses: 2+: Radial (L), Radial (R) GI/Abdominal: Normal Bowel Sounds, Soft, Non-Tender (Female) Exam: Normal Speculum Exam, Other (Excoriation of the skin on the mons pubis area. No swelling or erythema of the introital area.) Back Exam: Normal Inspection Extremities: Normal Inspection, Normal Range of Motion, Non-Tender, No Pedal Edema, Normal Capillary Refill Neurological: Alert, Oriented, CN II-XII Intact, Normal Cognition, No Motor/Sensory Deficits Psychiatric: Anxious Skin Exam: Warm, Dry, Rash, Wound/Incision (Some excoriations on the monitor pubis area) Course - Vital Signs Last Recorded V/S: Last Vital Signs Temp 36.2 C 04/04/21 07:50 Pulse 109 H 04/04/21 07:50 Resp 16 04/04/21 07:50 BP 134/90 04/04/21 07:50 Pulse Ox 95 04/04/21 07:50 - Re-Assessments/Exams Free Text/Narrative Re-Assessment/Exam: 04/04/21 08:20: Patient with some excoriations on her mons area of her perineum. The vaginal area and introital area appeared normal. I would be concerned about potential allergic type response from the Lang hair removal cream but this could also be some folliculitis as well. I will have the patient apply hydrocortisone cream to the area twice daily and then Bactroban ointment to the area twice daily until it has resolved. She did take ibuprofen and Tylenol as needed for pain. I have advised her not to use this hair removal cream again. Departure - Departure Time of Disposition: 08:30 Disposition: Home, Self-Care 01 Condition: Good Clinical Impression: Perineal irritation, Folliculitis - Discharge Information Prescriptions: Mupirocin Oint [Bactroban Oint] 22 gm TP BID #1 tube Hydrocortisone [Hydrocortisone 2.5% Crm] 30 gm TP BID #1 tube Instructions: Chemical Burn, Adult, [id number], Folliculitis Referrals: Manoj Miramontes MD [Primary Care Provider] - Forms: ED Department Discharge Additional Instructions: You appear to have a mild chemical burn to your mons pubis area. There are also could be a mild bacterial infection called a folliculitis to this area as well. You should avoid applying any of this hair removal cream in the future. Med ications as prescribed (hydrocortisone cream, Bactroban ointment). Did apply the hydrocortisone cream for sparingly to the mons pubis rash area and rub it in completely. Then you should apply the Bactroban ointment to the area after this. You can take ibuprofen and Tylenol as needed for pain. Back to the emergency department for high fever, trouble breathing, inability to urinate or any other concerning signs or symptoms. Sepsis Event Note (ED) - Evaluation Sepsis Screening Result: No Definite Risk - Focused Exam Vital Signs: Vital Signs Temp Pulse Resp BP Pulse Ox 04/04/21 07:50 36.2 C 109 H 16 134/90 95
== END 2021-04-04 08:45 | disposition home or self-care (01) ==
LOC: FB.ED 07:38
DX: L29.3 Anogenital pruritus, unspecified (principal); L73.9 Follicular disorder, unspecified; E66.9 Obesity, unspecified; Z88.0 Allergy status to penicillin; Z68.36 Body mass index [BMI] 36.0-36.9, adult
CPT/HCPCS: 99283

== ENCOUNTER 2021-08-14 03:25 | Emergency (ER) | payer MEDICAID ==
[2021-08-14] MEDS ORDERED: Cyclobenzaprine 10 MG Tab PO ONE (03:26)
[2021-08-14] MEDS ORDERED: Acetaminophen/HYDROcodone 325-5 MG Tab PO ONE (03:26)
[2021-08-14 03:38] VITALS: BP 141/101; PULSE 102
[2021-08-14] MEDS ORDERED: Morphine 10 MG/ML SDV IM ONE (03:50)
[2021-08-14] MEDS ORDERED: hydrOXYzine HCl 50 MG/ML SDV IM ONE (03:50)
== END 2021-08-14 04:31 | disposition home or self-care (01) ==
LOC: FB.ED 03:25
DX: S39.012A Strain of muscle, fascia and tendon of lower back, initial encounter (principal); M62.830 Muscle spasm of back; E66.9 Obesity, unspecified; Z68.36 Body mass index [BMI] 36.0-36.9, adult; Z88.0 Allergy status to penicillin
CPT/HCPCS: 96372; 99282; 99283; A9270-GY; J2270; J3410

== ENCOUNTER 2021-11-20 06:08 | Emergency (ER) | payer MEDICAID ==
[2021-11-20] MEDS ORDERED: Ketorolac 10 MG Tab PO ONE (06:09)
[2021-11-20] MEDS ORDERED: Cyclobenzaprine 10 MG Tab PO ONE (06:09)
[2021-11-20 06:44] VITALS: BP 140/81; PULSE 89
[2021-11-20] MEDS ORDERED: Ketorolac 30 MG/ML SDV IM ONE (06:51)
== END 2021-11-20 07:15 | disposition home or self-care (01) ==
LOC: FB.ED 06:08
DX: M54.2 Cervicalgia (principal); E66.9 Obesity, unspecified; Z68.36 Body mass index [BMI] 36.0-36.9, adult; Z88.0 Allergy status to penicillin; Z79.899 Other long term (current) drug therapy
CPT/HCPCS: 96372; 99281; 99283; A9270; J1885

== ENCOUNTER 2022-01-21 04:07 | Emergency (ER) | payer OTHER, MEDICAID ==
[2022-01-21] MEDS ORDERED: Ibuprofen 800 MG Tab PO ONE (04:27)
[2022-01-21 04:33] VITALS: BP 144/96; PULSE 83
== END 2022-01-21 05:12 | disposition home or self-care (01) ==
LOC: FB.ED 04:07
DX: S93.402A Sprain of unspecified ligament of left ankle, initial encounter (principal); E66.9 Obesity, unspecified; Z68.38 Body mass index [BMI] 38.0-38.9, adult; Z88.0 Allergy status to penicillin; Z79.899 Other long term (current) drug therapy; X50.1XXA Overexertion from prolonged static or awkward postures, initial encounter
CPT/HCPCS: 73610; 99283; A9270

== ENCOUNTER 2022-09-14 17:22 | Emergency (ER) | payer MEDICAID, OTHER ==
[2022-09-14 17:32] VITALS: BP 130/86
[2022-09-14 17:46] VITALS: PULSE 91
== END 2022-09-14 18:26 | disposition home or self-care (01) ==
LOC: FB.ED 17:22
DX: S63.610A Unspecified sprain of right index finger, initial encounter (principal); E66.9 Obesity, unspecified; Z68.30 Body mass index [BMI] 30.0-30.9, adult; W23.1XXA Caught, crushed, jammed, or pinched between stationary objects, initial encounter; Y99.0 Civilian activity done for income or pay
CPT/HCPCS: 73140-F6; 99283

== ENCOUNTER 2022-10-22 09:29 | Emergency (ER) | payer MEDICAID ==
[2022-10-22 09:49] VITALS: BP 122/87; PULSE 93
[2022-10-22] MEDS ORDERED: Lidocaine 2% Viscous Solution 15 ML UD PO ONE (09:54)
== END 2022-10-22 10:15 | disposition home or self-care (01) ==
LOC: FB.ED 09:29
DX: K04.7 Periapical abscess without sinus (principal); K02.9 Dental caries, unspecified; E66.9 Obesity, unspecified; Z98.890 Other specified postprocedural states; Z88.0 Allergy status to penicillin; Z79.899 Other long term (current) drug therapy
CPT/HCPCS: 99282; A9270

== ENCOUNTER 2022-12-30 12:10 | Emergency (ER) | payer MEDICAID ==
[2022-12-30 13:00] LABS: BASOPHILS ABSOLUTE AUTO 0.1 x10-3/uL (0.0-0.1); BASOPHILS PERCENT AUTO 0.7 % (0.2-1.5); EOSINOPHILS ABSOLUTE AUTO 0.2 x10-3/uL (0.0-0.8); EOSINOPHILS PERCENT AUTO 2.8 % (0.6-8.1); HEMATOCRIT 38.4 % (34.2-48.2); LYMPHOCYTES ABSOLUTE AUTO 2.6 x10-3/uL (1.0-4.4); LYMPHOCYTES PERCENT AUTO 31.6 % (18.4-52.1); MEAN CORPUSCULAR HEMOGLOBIN 28.7 pg (23.9-33.9); MEAN CORPUSCULAR HGB CONC 33.7 g/dL (31.9-34.8); MEAN CORPUSCULAR VOLUME 84.9 fL (76.7-100.5); MEAN PLATELET VOLUME 7.7 fL (7.1-12.4); MONOCYTES ABSOLUTE AUTO 0.6 x10-3/uL (0.3-1.0); NEUTROPHILS ABSOLUTE AUTO 4.7 x10-3/uL (1.5-6.3); NEUTROPHILS PERCENT AUTO 57.9 % (30.8-76.2); PLATELET COUNT,PLT 287 x10(3)uL (151-488); RED BLOOD CELL COUNT 4.53 x10(6)uL (3.60-5.20); RED CELL DISTRIBUTION WIDTH 14.3 % (12.3-16.5); WHITE BLOOD CELL COUNT,WBC 8.2 x10-3/uL (3.0-10.3)
[2022-12-30 13:09] LABS: BLOOD UREA NITROGEN,BUN 12 mg/dL (7-18); CARBON DIOXIDE,CO2 30 mmol/L (21-32); CHLORIDE,CL 105 mmol/L (100-110); CREATININE 0.8 mg/dL (0.55-1.02); EST CRCL DRUG DOSING (CG) 113.32 mL/min; ESTIMATED GFR 105 mL/min (>60); GLUCOSE RANDOM 99 mg/dL (80-116); SODIUM,NA 142 mmol/L (135-145)
[2022-12-30 13:20] LABS: A/G RATIO 0.9; ALANINE AMINOTRANSFERASE,ALT 25 U/L (12-36); ALBUMIN 3.4 g/dL (3.5-5.2); ALKALINE PHOSPHATASE 77 IU/L (56-112); ASPARTATE AMNIOTRANSFERASE,AST 18 IU/L (5-25); BILIRUBIN TOTAL 0.3 mg/dL (0.1-1.3); PROTEIN TOTAL,TP 7.2 g/dL (6.0-8.0)
[2022-12-30 14:01] VITALS: BP 131/89; PULSE 88
== END 2022-12-30 13:58 | disposition home or self-care (01) ==
LOC: FB.ED 12:10
DX: R55 Syncope and collapse (principal); Z88.0 Allergy status to penicillin; Z86.16 Personal history of COVID-19
CPT/HCPCS: 36415; 80053; 82947; 85025; 93005; 99284

== ENCOUNTER 2022-12-31 15:54 | Emergency (ER) | payer MEDICAID ==
[2022-12-31 16:53] LABS: BASOPHILS PERCENT AUTO 0.5 % (0.2-1.5); EOSINOPHILS ABSOLUTE AUTO 0.3 x10-3/uL (0.0-0.8); EOSINOPHILS PERCENT AUTO 2.6 % (0.6-8.1); HEMATOCRIT 41.1 % (34.2-48.2); HEMOGLOBIN 13.8 g/dL (11.4-15.5); LYMPHOCYTES ABSOLUTE AUTO 2.6 x10-3/uL (1.0-4.4); LYMPHOCYTES PERCENT AUTO 26.9 % (18.4-52.1); MEAN CORPUSCULAR HEMOGLOBIN 28.4 pg (23.9-33.9); MEAN CORPUSCULAR HGB CONC 33.6 g/dL (31.9-34.8); MEAN CORPUSCULAR VOLUME 84.6 fL (76.7-100.5); MEAN PLATELET VOLUME 7.6 fL (7.1-12.4); MONOCYTES ABSOLUTE AUTO 0.6 x10-3/uL (0.3-1.0); MONOCYTES PERCENT AUTO 6.2 % (4.4-15.7); NEUTROPHILS ABSOLUTE AUTO 6.3 x10-3/uL (1.5-6.3); NEUTROPHILS PERCENT AUTO 63.8 % (30.8-76.2); PLATELET COUNT,PLT 318 x10(3)uL (151-488); RED BLOOD CELL COUNT 4.86 x10(6)uL (3.60-5.20); RED CELL DISTRIBUTION WIDTH 14.6 % (12.3-16.5); WHITE BLOOD CELL COUNT,WBC 9.8 x10-3/uL (3.0-10.3)
[2022-12-31 17:00] LABS: BLOOD UREA NITROGEN,BUN 10 mg/dL (7-18); BUN/CREATININE RATIO 14.3 (9-20); CARBON DIOXIDE,CO2 29 mmol/L (21-32); CHLORIDE,CL 105 mmol/L (100-110); CREATININE 0.7 mg/dL (0.55-1.02); EST CRCL DRUG DOSING (CG) 129.51 mL/min; ESTIMATED GFR 124 mL/min (>60); GLUCOSE RANDOM 108 mg/dL (80-116); POTASSIUM,K 3.9 mmol/L (3.5-5.3); SODIUM,NA 142 mmol/L (135-145)
[2022-12-31 17:07] LABS: A/G RATIO 0.9; ALANINE AMINOTRANSFERASE,ALT 26 U/L (12-36); ALBUMIN 3.7 g/dL (3.5-5.2); ALKALINE PHOSPHATASE 87 IU/L (56-112); ASPARTATE AMNIOTRANSFERASE,AST 15 IU/L (5-25); BILIRUBIN TOTAL 0.3 mg/dL (0.1-1.3); PROTEIN TOTAL,TP 7.8 g/dL (6.0-8.0)
[2022-12-31 17:10] LABS: C-REACTIVE PROTEIN 0.34 mg/dL (<0.33); TSH ULTRASENSITIVE 1.42 IU/mL (0.36-3.74)
[2022-12-31 17:12] LABS: TROPONIN I < 4.0 pg/mL (4.0-60.3)
[2022-12-31 17:59] LABS: BILIRUBIN,URINE NEGATIVE (NEGATIVE); COLOR,URINE YELLOW (YELLOW); GLUCOSE,URINE NORMAL (NORMAL); KETONES,URINE NEGATIVE (NEGATIVE); LEUKOCYTE ESTERASE,URINE NEGATIVE (NEGATIVE); NITRITE,URINE NEGATIVE (NEGATIVE); OCCULT BLOOD,URINE NEGATIVE (NEGATIVE); PH,URINE 6.5 (5.0-6.5); PROTEIN,URINE NEGATIVE (NEGATIVE); UROBILINOGEN,URINE NORMAL (NEGATIVE)
[2022-12-31 18:00] LABS: APPEARANCE,URINE CLEAR (CLEAR); BACTERIA,URINE FEW (NS); RBC,URINE 0-5 (0-5); SQUAMOUS EPITHELIAL CELLS,UR FEW (NS,R,O); WBC,URINE 0-5 (0-5)
[2022-12-31 18:01] VITALS: BP 141/95; PULSE 90
== END 2022-12-31 18:36 | disposition home or self-care (01) ==
LOC: FB.ED 15:54
DX: R55 Syncope and collapse (principal); R51.9 Headache, unspecified; E11.9 Type 2 diabetes mellitus without complications; E66.9 Obesity, unspecified; Z68.36 Body mass index [BMI] 36.0-36.9, adult; Z86.16 Personal history of COVID-19; Z88.0 Allergy status to penicillin
CPT/HCPCS: 36415; 80053; 81001; 81025; 82947; 84443; 84484; 85025; 85379; 86140; 93005; 99284

== ENCOUNTER 2023-02-20 09:19 | Emergency (ER) | payer MEDICAID ==
[2023-02-20] MEDS ORDERED: Sodium Chloride 0.9% 1,000 ML IV SCH (10:00)
[2023-02-20 10:06] LABS: BASOPHILS ABSOLUTE AUTO 0.1 x10-3/uL (0.0-0.1); BASOPHILS PERCENT AUTO 0.6 % (0.2-1.5); EOSINOPHILS ABSOLUTE AUTO 0.2 x10-3/uL (0.0-0.8); EOSINOPHILS PERCENT AUTO 1.9 % (0.6-8.1); HEMATOCRIT 40.8 % (34.2-48.2); HEMOGLOBIN 13.8 g/dL (11.4-15.5); LYMPHOCYTES ABSOLUTE AUTO 3.1 x10-3/uL (1.0-4.4); LYMPHOCYTES PERCENT AUTO 33.2 % (18.4-52.1); MEAN CORPUSCULAR HEMOGLOBIN 28.5 pg (23.9-33.9); MEAN CORPUSCULAR HGB CONC 33.8 g/dL (31.9-34.8); MEAN CORPUSCULAR VOLUME 84.4 fL (76.7-100.5); MONOCYTES ABSOLUTE AUTO 0.7 x10-3/uL (0.3-1.0); MONOCYTES PERCENT AUTO 7.5 % (4.4-15.7); NEUTROPHILS ABSOLUTE AUTO 5.3 x10-3/uL (1.5-6.3); NEUTROPHILS PERCENT AUTO 56.8 % (30.8-76.2); PLATELET COUNT,PLT 310 x10(3)uL (151-488); RED BLOOD CELL COUNT 4.84 x10(6)uL (3.60-5.20); RED CELL DISTRIBUTION WIDTH 13.9 % (12.3-16.5); WHITE BLOOD CELL COUNT,WBC 9.3 x10-3/uL (3.0-10.3)
[2023-02-20] MEDS ORDERED: Acetaminophen 500 MG Tab PO ONE (10:38)
[2023-02-20] MEDS ORDERED: Ketorolac 30 MG/ML SDV IVPUSH ONE (10:38)
[2023-02-20 11:02] VITALS: BP 125/92; PULSE 76
[2023-02-20] MEDS ORDERED: Metoclopramide 10 MG/2 ML SDV IVPUSH ONE (11:11)
== END 2023-02-20 11:35 | disposition home or self-care (01) ==
LOC: FB.ED 09:19
DX: S09.90XA Unspecified injury of head, initial encounter (principal); S00.81XA Abrasion of other part of head, initial encounter; F44.4 Conversion disorder with motor symptom or deficit; E11.9 Type 2 diabetes mellitus without complications; E66.9 Obesity, unspecified; I10 Essential (primary) hypertension; Z86.16 Personal history of COVID-19; Z79.899 Other long term (current) drug therapy; Z88.0 Allergy status to penicillin; W18.30XA Fall on same level, unspecified, initial encounter
CPT/HCPCS: 85025; 96361; 96374; 96375; 99283; 99284-25; A9270-GY; J1885; J2765; J7030

== ENCOUNTER 2023-03-13 09:15 | Emergency (ER) | payer MEDICAID ==
[2023-03-13] MEDS: Sodium Chloride 0.9% 10 ML Syringe FLUSH PRN (10:05)
[2023-03-13] MEDS: Ondansetron 4 MG/2 ML SDV IVPUSH ONE ×2 (10:06→11:00)
[2023-03-13] MEDS: Sodium Chloride 0.9% 1,000 ML IV SCH (10:06)
[2023-03-13] MEDS: Ketorolac 30 MG/ML SDV IVPUSH ONE (10:08)
[2023-03-13 10:17] LABS: BASOPHILS PERCENT AUTO 0.6 % (0.2-1.5); EOSINOPHILS ABSOLUTE AUTO 0.1 x10-3/uL (0.0-0.8); EOSINOPHILS PERCENT AUTO 1.9 % (0.6-8.1); HEMATOCRIT 39.2 % (34.2-48.2); HEMOGLOBIN 13.6 g/dL (11.4-15.5); LYMPHOCYTES ABSOLUTE AUTO 2.4 x10-3/uL (1.0-4.4); LYMPHOCYTES PERCENT AUTO 30.7 % (18.4-52.1); MEAN CORPUSCULAR HEMOGLOBIN 29.3 pg (23.9-33.9); MEAN CORPUSCULAR HGB CONC 34.7 g/dL (31.9-34.8); MEAN CORPUSCULAR VOLUME 84.3 fL (76.7-100.5); MONOCYTES ABSOLUTE AUTO 0.6 x10-3/uL (0.3-1.0); MONOCYTES PERCENT AUTO 7.3 % (4.4-15.7); NEUTROPHILS ABSOLUTE AUTO 4.7 x10-3/uL (1.5-6.3); NEUTROPHILS PERCENT AUTO 59.5 % (30.8-76.2); PLATELET COUNT,PLT 291 x10(3)uL (151-488); RED BLOOD CELL COUNT 4.66 x10(6)uL (3.60-5.20); RED CELL DISTRIBUTION WIDTH 13.5 % (12.3-16.5); WHITE BLOOD CELL COUNT,WBC 7.9 x10-3/uL (3.0-10.3)
[2023-03-13 10:21] LABS: BLOOD UREA NITROGEN,BUN 9 mg/dL (7-18); BUN/CREATININE RATIO 11.3 (9-20); CARBON DIOXIDE,CO2 28 mmol/L (21-32); CHLORIDE,CL 106 mmol/L (100-110); CREATININE 0.8 mg/dL (0.55-1.02); EST CRCL DRUG DOSING (CG) 113.32 mL/min; ESTIMATED GFR 105 mL/min (>60); GLUCOSE RANDOM 92 mg/dL (80-116); POTASSIUM,K 3.6 mmol/L (3.5-5.3); SODIUM,NA 141 mmol/L (135-145)
[2023-03-13 10:22] LABS: BILIRUBIN,URINE NEGATIVE (NEGATIVE); GLUCOSE,URINE NORMAL (NORMAL); KETONES,URINE NEGATIVE (NEGATIVE); LEUKOCYTE ESTERASE,URINE NEGATIVE (NEGATIVE); NITRITE,URINE NEGATIVE (NEGATIVE); OCCULT BLOOD,URINE NEGATIVE (NEGATIVE); PROTEIN,URINE NEGATIVE (NEGATIVE); UROBILINOGEN,URINE NORMAL (NEGATIVE)
[2023-03-13 10:27] LABS: A/G RATIO 0.9; ALANINE AMINOTRANSFERASE,ALT 18 U/L (12-36); ALBUMIN 3.4 g/dL (3.5-5.2); ALKALINE PHOSPHATASE 83 IU/L (56-112); ASPARTATE AMNIOTRANSFERASE,AST 10 IU/L (5-25); BILIRUBIN TOTAL 0.4 mg/dL (0.1-1.3); PROTEIN TOTAL,TP 7.2 g/dL (6.0-8.0)
[2023-03-13 10:32] LABS: APPEARANCE,URINE CLEAR (CLEAR); BACTERIA,URINE FEW (NS); COLOR,URINE YELLOW (YELLOW); RBC,URINE 0-5 (0-5); SQUAMOUS EPITHELIAL CELLS,UR FEW (NS,R,O); WBC,URINE NOT SEEN (0-5)
[2023-03-13 10:36] LABS: C-REACTIVE PROTEIN 0.58 mg/dL (<0.50)
[2023-03-13] MEDS: Morphine 4 MG/ML VIAL IVPUSH ONE (11:00)
[2023-03-13] MEDS: Iopamidol 755 Mg/ML 100 ML Bottle IV SCH (11:26)
[2023-03-13 11:39] VITALS: BP 137/93; PULSE 76
== END 2023-03-13 12:45 | disposition home or self-care (01) ==
LOC: FB.ED 09:15
DX: R10.11 Right upper quadrant pain (principal); I10 Essential (primary) hypertension; K21.9 Gastro-esophageal reflux disease without esophagitis; Z88.0 Allergy status to penicillin; E66.9 Obesity, unspecified; Z68.35 Body mass index [BMI] 35.0-35.9, adult; Z86.16 Personal history of COVID-19
CPT/HCPCS: 74177; 80053; 81001; 81025; 83690; 85025; 86140; 96361; 96374; 96375; 96376; 99284-25; J1885; J2270; J2405; J3490; J7030; Q9967

== ENCOUNTER 2023-05-04 09:02 | Emergency (ER) | payer MEDICAID ==
[2023-05-04 09:21] VITALS: PULSE 91
[2023-05-04] MEDS ORDERED: Albuterol/Ipratropium 3.0-0.5 MG/3 ML Neb Soln NEB ONE (09:41)
[2023-05-04 10:18] LABS: INFLUENZA A NAA NEGATIVE (NEGATIVE); INFLUENZA B NAA NEGATIVE (NEGATIVE)
[2023-05-04 10:22] LABS: CORONAVIRUS COVID-19 NAA NEGATIVE (NEGATIVE)
[2023-05-04 11:41] VITALS: BP 126/78
== END 2023-05-04 11:25 | disposition home or self-care (01) ==
LOC: FB.ED 09:02
DX: J06.9 Acute upper respiratory infection, unspecified (principal); E66.9 Obesity, unspecified; I10 Essential (primary) hypertension; K21.9 Gastro-esophageal reflux disease without esophagitis; Z86.16 Personal history of COVID-19; Z79.899 Other long term (current) drug therapy; Z88.0 Allergy status to penicillin
CPT/HCPCS: 0240U; 71045; 94640; 99283; 99285; J7620

== ENCOUNTER 2023-05-29 06:50 | Emergency (ER) | payer MEDICAID ==
[2023-05-29] MEDS: Lidocaine 4% 1 each Patch TOP STA (07:57)
[2023-05-29] MEDS: Ketorolac 30 MG/ML SDV IM STA (07:58)
[2023-05-29] MEDS: tiZANidine 4 MG Tab PO STA (08:01)
[2023-05-29] MEDS: traMADol 50 MG Tab PO ONE (08:01)
[2023-05-29 09:07] VITALS: BP 117/75; PULSE 93
== END 2023-05-29 09:03 | disposition home or self-care (01) ==
LOC: FB.ED 06:50
DX: M51.16 Intervertebral disc disorders with radiculopathy, lumbar region (principal); I10 Essential (primary) hypertension; K21.9 Gastro-esophageal reflux disease without esophagitis; E66.9 Obesity, unspecified; Z86.16 Personal history of COVID-19; Z79.899 Other long term (current) drug therapy; Z88.0 Allergy status to penicillin
CPT/HCPCS: 96372; 99283; A9270; J1885

== ENCOUNTER 2023-09-29 13:36 | Emergency (ER) | payer MEDICAID, OTHER ==
[2023-09-29 14:21] VITALS: BP 127/89; PULSE 92
== END 2023-09-29 14:15 | disposition home or self-care (01) ==
LOC: FB.ED 13:36
DX: F41.9 Anxiety disorder, unspecified (principal); I10 Essential (primary) hypertension; K21.9 Gastro-esophageal reflux disease without esophagitis; E11.9 Type 2 diabetes mellitus without complications; E66.9 Obesity, unspecified; Z68.36 Body mass index [BMI] 36.0-36.9, adult; Z86.16 Personal history of COVID-19; Z79.899 Other long term (current) drug therapy; Z88.0 Allergy status to penicillin
CPT/HCPCS: 99283; 99284

== ENCOUNTER 2023-10-19 09:43 | Emergency (ER) | payer MEDICAID ==
[2023-10-19 10:39] LABS: BASOPHILS ABSOLUTE AUTO 0.1 x10-3/uL (0.0-0.1); BLOOD UREA NITROGEN,BUN 11 mg/dL (7-18); BUN/CREATININE RATIO 13.8 (9-20); CALCIUM 9.1 mg/dL (8.6-10.2); CARBON DIOXIDE,CO2 31 mmol/L (21-32); CHLORIDE,CL 106 mmol/L (100-110); CREATININE 0.8 mg/dL (0.55-1.02); EOSINOPHILS ABSOLUTE AUTO 0.2 x10-3/uL (0.0-0.8); EOSINOPHILS PERCENT AUTO 2.2 % (0.6-8.1); ESTIMATED GFR 105 mL/min (>60); GLUCOSE RANDOM 89 mg/dL (80-116); HEMATOCRIT 39.9 % (34.2-48.2); HEMOGLOBIN 13.3 g/dL (11.4-15.5); LYMPHOCYTES PERCENT AUTO 34.9 % (18.4-52.1); MEAN CORPUSCULAR HEMOGLOBIN 28.3 pg (23.9-33.9); MEAN CORPUSCULAR HGB CONC 33.4 g/dL (31.9-34.8); MEAN CORPUSCULAR VOLUME 84.9 fL (76.7-100.5); MONOCYTES ABSOLUTE AUTO 0.6 x10-3/uL (0.3-1.0); MONOCYTES PERCENT AUTO 7.5 % (4.4-15.7); NEUTROPHILS ABSOLUTE AUTO 4.7 x10-3/uL (1.5-6.3); NEUTROPHILS PERCENT AUTO 54.4 % (30.8-76.2); PLATELET COUNT,PLT 330 x10(3)uL (151-488); POTASSIUM,K 4.1 mmol/L (3.5-5.3); RED CELL DISTRIBUTION WIDTH 13.8 % (12.3-16.5); SODIUM,NA 142 mmol/L (135-145); WHITE BLOOD CELL COUNT,WBC 8.7 x10-3/uL (3.0-10.3)
[2023-10-19 10:41] VITALS: PULSE 89
[2023-10-19 10:45] LABS: A/G RATIO 0.9; ALANINE AMINOTRANSFERASE,ALT 23 U/L (12-36); ALBUMIN 3.4 g/dL (3.5-5.2); ALKALINE PHOSPHATASE 88 IU/L (56-112); ASPARTATE AMNIOTRANSFERASE,AST 8 IU/L (5-25); BILIRUBIN TOTAL 0.3 mg/dL (0.1-1.3); PROTEIN TOTAL,TP 7.2 g/dL (6.0-8.0)
[2023-10-19] MEDS: Iopamidol 755 Mg/ML 100 ML Bottle IV SCH ×2 (11:13→11:14)
[2023-10-19 12:10] VITALS: BP 143/100
== END 2023-10-19 12:04 | disposition home or self-care (01) ==
LOC: FB.ED 09:43
DX: H53.9 Unspecified visual disturbance (principal); I10 Essential (primary) hypertension; K21.9 Gastro-esophageal reflux disease without esophagitis; E66.9 Obesity, unspecified; Z79.899 Other long term (current) drug therapy; Z88.0 Allergy status to penicillin; Z68.36 Body mass index [BMI] 36.0-36.9, adult
CPT/HCPCS: 36415; 70481; 80053; 85025; 99284; Q9967

== ENCOUNTER 2023-10-30 14:21 | Emergency (ER) | payer MEDICAID ==
[2023-10-30 14:51] LABS: BASOPHILS PERCENT AUTO 0.3 % (0.2-1.5); EOSINOPHILS PERCENT AUTO 0.2 % (0.6-8.1); HEMOGLOBIN 13.7 g/dL (11.4-15.5); LYMPHOCYTES ABSOLUTE AUTO 1.8 x10-3/uL (1.0-4.4); LYMPHOCYTES PERCENT AUTO 16.1 % (18.4-52.1); MEAN CORPUSCULAR HGB CONC 33.4 g/dL (31.9-34.8); MEAN CORPUSCULAR VOLUME 83.8 fL (76.7-100.5); MONOCYTES ABSOLUTE AUTO 0.5 x10-3/uL (0.3-1.0); MONOCYTES PERCENT AUTO 4.2 % (4.4-15.7); NEUTROPHILS ABSOLUTE AUTO 8.8 x10-3/uL (1.5-6.3); NEUTROPHILS PERCENT AUTO 79.2 % (30.8-76.2); PLATELET COUNT,PLT 278 x10(3)uL (151-488); RED CELL DISTRIBUTION WIDTH 13.7 % (12.3-16.5); WHITE BLOOD CELL COUNT,WBC 11.1 x10-3/uL (3.0-10.3)
[2023-10-30 14:55] LABS: CALCIUM 9.2 mg/dL (8.6-10.2); CARBON DIOXIDE,CO2 27 mmol/L (21-32); CHLORIDE,CL 105 mmol/L (100-110); ESTIMATED GFR 80 mL/min (>60); GLUCOSE RANDOM 125 mg/dL (80-116); POTASSIUM,K 3.8 mmol/L (3.5-5.3); SODIUM,NA 142 mmol/L (135-145)
[2023-10-30] MEDS: Ondansetron 4 MG Tab.DIS PO STA (14:55)
[2023-10-30 15:01] LABS: A/G RATIO 0.9; ALANINE AMINOTRANSFERASE,ALT 61 U/L (12-36); ALBUMIN 3.5 g/dL (3.5-5.2); ALKALINE PHOSPHATASE 88 IU/L (56-112); ASPARTATE AMNIOTRANSFERASE,AST 42 IU/L (5-25); BILIRUBIN TOTAL 0.3 mg/dL (0.1-1.3); PROTEIN TOTAL,TP 7.6 g/dL (6.0-8.0)
[2023-10-30 15:38] LABS: BLOOD UREA NITROGEN,BUN 17 mg/dL (7-18)
[2023-10-30] MEDS: Ketorolac 30 MG/ML SDV IM ONE (15:44)
[2023-10-30] MEDS: hydrOXYzine HCl 50 MG/ML SDV IM ONE (15:45)
[2023-10-30 16:10] VITALS: BP 111/76; PULSE 96
== END 2023-10-30 16:05 | disposition home or self-care (01) ==
LOC: FB.ED 14:21
DX: R55 Syncope and collapse (principal); F43.0 Acute stress reaction; I10 Essential (primary) hypertension; K21.9 Gastro-esophageal reflux disease without esophagitis; E66.9 Obesity, unspecified; Z68.23 Body mass index [BMI] 23.0-23.9, adult; Z79.899 Other long term (current) drug therapy; Z88.0 Allergy status to penicillin
CPT/HCPCS: 36415; 80053; 85025; 93005; 96372; 99284; J1885; J3410; Q0162

== ENCOUNTER 2023-11-14 04:41 | Emergency (ER) | payer MEDICAID ==
[2023-11-14 04:54] VITALS: BP 131/83; PULSE 104
[2023-11-14 05:27] LABS: BASOPHILS ABSOLUTE AUTO 0.1 x10-3/uL (0.0-0.1); BASOPHILS PERCENT AUTO 0.8 % (0.2-1.5); EOSINOPHILS ABSOLUTE AUTO 0.2 x10-3/uL (0.0-0.8); EOSINOPHILS PERCENT AUTO 1.8 % (0.6-8.1); HEMATOCRIT 39.2 % (34.2-48.2); HEMOGLOBIN 12.9 g/dL (11.4-15.5); LYMPHOCYTES ABSOLUTE AUTO 3.6 x10-3/uL (1.0-4.4); LYMPHOCYTES PERCENT AUTO 32.6 % (18.4-52.1); MEAN CORPUSCULAR HEMOGLOBIN 27.6 pg (23.9-33.9); MEAN CORPUSCULAR HGB CONC 32.9 g/dL (31.9-34.8); MEAN CORPUSCULAR VOLUME 83.9 fL (76.7-100.5); MEAN PLATELET VOLUME 7.8 fL (7.1-12.4); MONOCYTES ABSOLUTE AUTO 0.9 x10-3/uL (0.3-1.0); MONOCYTES PERCENT AUTO 8.4 % (4.4-15.7); NEUTROPHILS ABSOLUTE AUTO 6.2 x10-3/uL (1.5-6.3); NEUTROPHILS PERCENT AUTO 56.4 % (30.8-76.2); PLATELET COUNT,PLT 338 x10(3)uL (151-488); RED BLOOD CELL COUNT 4.67 x10(6)uL (3.60-5.20); RED CELL DISTRIBUTION WIDTH 14.3 % (12.3-16.5)
[2023-11-14 05:36] LABS: BLOOD UREA NITROGEN,BUN 9 mg/dL (7-18); BUN/CREATININE RATIO 11.3 (9-20); CALCIUM 8.6 mg/dL (8.6-10.2); CARBON DIOXIDE,CO2 27 mmol/L (21-32); CHLORIDE,CL 107 mmol/L (100-110); CREATININE 0.8 mg/dL (0.55-1.02); ESTIMATED GFR 105 mL/min (>60); GLUCOSE RANDOM 104 mg/dL (80-116); POTASSIUM,K 3.8 mmol/L (3.5-5.3); SODIUM,NA 140 mmol/L (135-145)
[2023-11-14 05:48] LABS: A/G RATIO 0.7; ALANINE AMINOTRANSFERASE,ALT 21 U/L (12-36); ALBUMIN 3.3 g/dL (3.5-5.2); ALKALINE PHOSPHATASE 85 IU/L (56-112); ASPARTATE AMNIOTRANSFERASE,AST 13 IU/L (5-25); BILIRUBIN TOTAL 0.2 mg/dL (0.1-1.3); PROTEIN TOTAL,TP 7.8 g/dL (6.0-8.0)
[2023-11-14] MEDS: Ketorolac 30 MG/ML SDV IM ONE (07:02)
[2023-11-14 07:17] LABS: BILIRUBIN,URINE NEGATIVE (NEGATIVE); GLUCOSE,URINE NORMAL (NORMAL); KETONES,URINE NEGATIVE (NEGATIVE); LEUKOCYTE ESTERASE,URINE NEGATIVE (NEGATIVE); NITRITE,URINE NEGATIVE (NEGATIVE); OCCULT BLOOD,URINE NEGATIVE (NEGATIVE); PROTEIN,URINE NEGATIVE (NEGATIVE); UROBILINOGEN,URINE NORMAL (NEGATIVE)
[2023-11-14 07:23] LABS: APPEARANCE,URINE CLEAR (CLEAR); BACTERIA,URINE FEW (NS); COLOR,URINE YELLOW (YELLOW); RBC,URINE 0-5 (0-5); SQUAMOUS EPITHELIAL CELLS,UR FEW (NS,R,O); WBC,URINE 0-5 (0-5)
== END 2023-11-14 08:00 | disposition home or self-care (01) ==
LOC: FB.ED 04:41
DX: F44.4 Conversion disorder with motor symptom or deficit (principal); I10 Essential (primary) hypertension; K21.9 Gastro-esophageal reflux disease without esophagitis; E66.9 Obesity, unspecified; Z79.899 Other long term (current) drug therapy; Z88.0 Allergy status to penicillin
CPT/HCPCS: 36415; 80053; 81001; 83735; 85025; 96372; 99283; 99284; J1885

== ENCOUNTER 2023-12-27 12:40 | Emergency (ER) | payer OTHER, MEDICAID ==
[2023-12-27 14:03] VITALS: BP 126/82; PULSE 81
== END 2023-12-27 13:15 | disposition home or self-care (01) ==
LOC: FB.ED 12:40
DX: S00.03XA Contusion of scalp, initial encounter (principal); S16.1XXA Strain of muscle, fascia and tendon at neck level, initial encounter; R55 Syncope and collapse; I10 Essential (primary) hypertension; K21.9 Gastro-esophageal reflux disease without esophagitis; E66.9 Obesity, unspecified; Z79.899 Other long term (current) drug therapy; Z88.0 Allergy status to penicillin; Z68.34 Body mass index [BMI] 34.0-34.9, adult; W01.0XXA Fall on same level from slipping, tripping and stumbling without subsequent striking against object, initial encounter; Y92.512 Supermarket, store or market as the place of occurrence of the external cause
CPT/HCPCS: 99283

== ENCOUNTER 2024-01-15 08:09 | Emergency (ER) | payer MEDICAID ==
[2024-01-15 09:24] LABS: BASOPHILS ABSOLUTE AUTO 0.1 x10-3/uL (0.0-0.1); BASOPHILS PERCENT AUTO 0.9 % (0.2-1.5); EOSINOPHILS ABSOLUTE AUTO 0.3 x10-3/uL (0.0-0.8); EOSINOPHILS PERCENT AUTO 3.4 % (0.6-8.1); HEMATOCRIT 42.4 % (34.2-48.2); HEMOGLOBIN 13.8 g/dL (11.4-15.5); LYMPHOCYTES ABSOLUTE AUTO 2.7 x10-3/uL (1.0-4.4); LYMPHOCYTES PERCENT AUTO 33.4 % (18.4-52.1); MEAN CORPUSCULAR HEMOGLOBIN 27.4 pg (23.9-33.9); MEAN CORPUSCULAR HGB CONC 32.6 g/dL (31.9-34.8); MEAN CORPUSCULAR VOLUME 84.2 fL (76.7-100.5); MEAN PLATELET VOLUME 7.8 fL (7.1-12.4); MONOCYTES ABSOLUTE AUTO 0.7 x10-3/uL (0.3-1.0); MONOCYTES PERCENT AUTO 8.4 % (4.4-15.7); NEUTROPHILS ABSOLUTE AUTO 4.4 x10-3/uL (1.5-6.3); NEUTROPHILS PERCENT AUTO 53.9 % (30.8-76.2); PLATELET COUNT,PLT 348 x10(3)uL (151-488); RED BLOOD CELL COUNT 5.04 x10(6)uL (3.60-5.20); RED CELL DISTRIBUTION WIDTH 14.4 % (12.3-16.5); WHITE BLOOD CELL COUNT,WBC 8.2 x10-3/uL (3.0-10.3)
[2024-01-15 09:26] LABS: BLOOD UREA NITROGEN,BUN 10 mg/dL (7-18); BUN/CREATININE RATIO 14.3 (9-20); CALCIUM 8.7 mg/dL (8.6-10.2); CARBON DIOXIDE,CO2 30 mmol/L (21-32); CHLORIDE,CL 103 mmol/L (100-110); CREATININE 0.7 mg/dL (0.55-1.02); EST CRCL DRUG DOSING (CG) 123.93 mL/min; ESTIMATED GFR 123 mL/min (>60); GLUCOSE RANDOM 95 mg/dL (80-116); POTASSIUM,K 3.7 mmol/L (3.5-5.3); SODIUM,NA 140 mmol/L (135-145)
[2024-01-15 09:33] LABS: BILIRUBIN,URINE NEGATIVE (NEGATIVE); GLUCOSE,URINE NORMAL (NORMAL); KETONES,URINE NEGATIVE (NEGATIVE); LEUKOCYTE ESTERASE,URINE NEGATIVE (NEGATIVE); NITRITE,URINE NEGATIVE (NEGATIVE); OCCULT BLOOD,URINE LARGE (NEGATIVE); PROTEIN,URINE NEGATIVE (NEGATIVE); UROBILINOGEN,URINE NORMAL (NEGATIVE)
[2024-01-15 09:34] LABS: APPEARANCE,URINE SLIGHTLY CLOUDY (CLEAR); BACTERIA,URINE FEW (NS); COLOR,URINE YELLOW (YELLOW); RBC,URINE 0-5 (0-5); SQUAMOUS EPITHELIAL CELLS,UR FEW (NS,R,O); WBC,URINE 0-5 (0-5)
[2024-01-15 09:36] LABS: AMPHETAMINES SCREEN, URINE NEGATIVE (NEGATIVE); BARBITURATE SCREEN,URINE NEGATIVE (NEGATIVE); BENZODIAZEPINES SCREEN,URINE NEGATIVE (NEGATIVE); BUPRENORPHINE SCREEN,URINE NEGATIVE (NEGATIVE); METHADONE SCREEN, URINE NEGATIVE (NEGATIVE); METHAMPHETAMINE SCREEN, URINE NEGATIVE (NEGATIVE); OXYCODONE SCREEN,URINE NEGATIVE (NEGATIVE); THC SCREEN,URINE NEGATIVE (NEGATIVE)
[2024-01-15 09:43] LABS: D-DIMER QUANTITATIVE 0.63 mg/LFEU (0.0-0.59); INR 0.92 (1.00-1.24); PROTHROMBIN TIME 9.7 sec (9.0-11.1)
[2024-01-15] MEDS: Ibuprofen 400 MG Tab PO ONE (09:58)
[2024-01-15 10:06] VITALS: BP 135/99; PULSE 78
== END 2024-01-15 10:05 | disposition home or self-care (01) ==
LOC: FB.ED 08:09
DX: R41.0 Disorientation, unspecified (principal); R51.9 Headache, unspecified; G89.29 Other chronic pain; I10 Essential (primary) hypertension; K21.9 Gastro-esophageal reflux disease without esophagitis; E11.9 Type 2 diabetes mellitus without complications; E66.9 Obesity, unspecified; Z79.899 Other long term (current) drug therapy; Z88.0 Allergy status to penicillin
CPT/HCPCS: 36415; 80048; 80307; 81001; 85025; 85379; 85610; 86140; 99284; A9270

== ENCOUNTER 2024-02-17 05:38 | Emergency (ER) | payer MEDICAID ==
[2024-02-17 05:50] VITALS: BP 129/95; PULSE 90
[2024-02-17] MEDS: diphenhydrAMINE 50 MG/ML SDV IM ONE (06:06)
[2024-02-17] MEDS: Ketorolac 30 MG/ML SDV IM ONE (06:06)
[2024-02-17] MEDS: hydrOXYzine HCl 50 MG/ML SDV IM ONE (06:06)
== END 2024-02-17 06:29 | disposition home or self-care (01) ==
LOC: FB.ED 05:38
DX: G44.209 Tension-type headache, unspecified, not intractable (principal); G43.909 Migraine, unspecified, not intractable, without status migrainosus; I10 Essential (primary) hypertension; E66.9 Obesity, unspecified; K21.9 Gastro-esophageal reflux disease without esophagitis; Z79.899 Other long term (current) drug therapy; Z88.0 Allergy status to penicillin
CPT/HCPCS: 96372; 99283; J1200; J1885; J3410

== ENCOUNTER 2024-05-03 10:00 | Emergency (ER) | payer MEDICAID ==
[2024-05-03] MEDS: Ketorolac 30 MG/ML SDV IM ONE (10:37)
[2024-05-03] MEDS: hydrOXYzine HCl 50 MG/ML SDV IM ONE (10:38)
[2024-05-03 12:59] VITALS: BP 148/92; PULSE 95
== END 2024-05-03 11:31 | disposition home or self-care (01) ==
LOC: FB.ED 10:00
DX: G43.109 Migraine with aura, not intractable, without status migrainosus (principal); M54.2 Cervicalgia; M79.2 Neuralgia and neuritis, unspecified; I10 Essential (primary) hypertension; K21.9 Gastro-esophageal reflux disease without esophagitis; E66.9 Obesity, unspecified; Z79.899 Other long term (current) drug therapy; Z88.0 Allergy status to penicillin; Z68.39 Body mass index [BMI] 39.0-39.9, adult
CPT/HCPCS: 96372; 99283; J1885; J3410

== ENCOUNTER 2024-05-07 12:29 | Emergency (ER) | payer MEDICAID ==
[2024-05-07 12:43] VITALS: BP 144/110; PULSE 107
== END 2024-05-07 13:20 | disposition home or self-care (01) ==
LOC: FB.ED 12:29
DX: R20.2 Paresthesia of skin (principal); I10 Essential (primary) hypertension; E66.9 Obesity, unspecified; Z68.37 Body mass index [BMI] 37.0-37.9, adult; Z90.89 Acquired absence of other organs; Z88.0 Allergy status to penicillin; Z79.52 Long term (current) use of systemic steroids; Z79.899 Other long term (current) drug therapy
CPT/HCPCS: 99283

== ENCOUNTER 2024-05-17 12:03 | Emergency (ER) | payer MEDICAID ==
[2024-05-17 14:19] VITALS: BP 128/79; PULSE 93
== END 2024-05-17 13:38 | disposition home or self-care (01) ==
LOC: FB.ED 12:03
DX: S16.1XXA Strain of muscle, fascia and tendon at neck level, initial encounter (principal); I10 Essential (primary) hypertension; K21.9 Gastro-esophageal reflux disease without esophagitis; Z88.0 Allergy status to penicillin; Z79.899 Other long term (current) drug therapy; X58.XXXA Exposure to other specified factors, initial encounter
CPT/HCPCS: 72125; 99283

== ENCOUNTER 2024-07-11 06:32 | Emergency (ER) | payer MEDICAID ==
[2024-07-11] MEDS: LORazepam 2 MG/ML SDV IVPUSH ONE (07:00)
[2024-07-11 07:01] LABS: BASOPHILS ABSOLUTE AUTO 0.1 x10-3/uL (0.0-0.1); BASOPHILS PERCENT AUTO 1.1 % (0.2-1.5); EOSINOPHILS ABSOLUTE AUTO 0.5 x10-3/uL (0.0-0.8); EOSINOPHILS PERCENT AUTO 5.2 % (0.6-8.1); HEMATOCRIT 39.7 % (34.2-48.2); HEMOGLOBIN 13.4 g/dL (11.4-15.5); LYMPHOCYTES ABSOLUTE AUTO 2.9 x10-3/uL (1.0-4.4); LYMPHOCYTES PERCENT AUTO 33.1 % (18.4-52.1); MEAN CORPUSCULAR HEMOGLOBIN 28.3 pg (23.9-33.9); MEAN CORPUSCULAR HGB CONC 33.8 g/dL (31.9-34.8); MEAN CORPUSCULAR VOLUME 83.8 fL (76.7-100.5); MEAN PLATELET VOLUME 7.7 fL (7.1-12.4); MONOCYTES ABSOLUTE AUTO 0.4 x10-3/uL (0.3-1.0); NEUTROPHILS ABSOLUTE AUTO 4.9 x10-3/uL (1.5-6.3); NEUTROPHILS PERCENT AUTO 55.6 % (30.8-76.2); PLATELET COUNT,PLT 334 x10(3)uL (151-488); RED BLOOD CELL COUNT 4.74 x10(6)uL (3.60-5.20); RED CELL DISTRIBUTION WIDTH 14.2 % (12.3-16.5); WHITE BLOOD CELL COUNT,WBC 8.8 x10-3/uL (3.0-10.3)
[2024-07-11 07:20] LABS: BLOOD UREA NITROGEN,BUN 8 mg/dL (7-18); CARBON DIOXIDE,CO2 26 mmol/L (21-32); CHLORIDE,CL 103 mmol/L (100-110); EST CRCL DRUG DOSING (CG) 89.88 mL/min; ESTIMATED GFR 80 mL/min (>60); GLUCOSE RANDOM 132 mg/dL (80-116); POTASSIUM,K 3.5 mmol/L (3.5-5.3); PROTEIN TOTAL,TP 7.5 g/dL (6.0-8.0); SODIUM,NA 141 mmol/L (135-145)
[2024-07-11 07:21] LABS: A/G RATIO 0.8; ALANINE AMINOTRANSFERASE,ALT 29 U/L (12-36); ALBUMIN 3.4 g/dL (3.5-5.2); ALKALINE PHOSPHATASE 83 IU/L (56-112); ASPARTATE AMNIOTRANSFERASE,AST 17 IU/L (5-25); BILIRUBIN TOTAL 0.2 mg/dL (0.1-1.3); MAGNESIUM 1.8 mg/dL (1.8-2.5)
[2024-07-11 07:47] VITALS: BP 125/78; PULSE 115
== END 2024-07-11 08:00 | disposition home or self-care (01) ==
LOC: FB.ED 06:32
DX: G25.3 Myoclonus (principal); F41.9 Anxiety disorder, unspecified; I10 Essential (primary) hypertension; K21.9 Gastro-esophageal reflux disease without esophagitis; Z88.0 Allergy status to penicillin; Z79.899 Other long term (current) drug therapy
CPT/HCPCS: 36415; 71045; 80053; 83735; 83880; 84484; 85025; 85379; 93005; 93010; 96374; 99284; 99285-25; J2060

== ENCOUNTER 2025-03-19 08:39 | Emergency (ER) | payer BC, MEDICAID ==
[2025-03-19 10:32] VITALS: BP 123/86; PULSE 97
== END 2025-03-19 09:54 | disposition home or self-care (01) ==
LOC: FB.ED 08:39
DX: K59.00 Constipation, unspecified (principal); I10 Essential (primary) hypertension; K21.9 Gastro-esophageal reflux disease without esophagitis; E66.9 Obesity, unspecified; Z79.899 Other long term (current) drug therapy; Z88.0 Allergy status to penicillin; Z68.41 Body mass index [BMI] 40.0-44.9, adult
CPT/HCPCS: 74019; 74019-26; 99283

== ENCOUNTER 2025-03-29 16:03 | Emergency (ER) | payer BC, MEDICAID ==
[2025-03-29] MEDS ORDERED: Sodium Chloride 0.9% 10 ML Syringe FLUSH PRN (16:15)
[2025-03-29 16:38] LABS: BASOPHILS ABSOLUTE AUTO 0.1 x10-3/uL (0.0-0.1); BASOPHILS PERCENT AUTO 0.8 % (0.2-1.5); EOSINOPHILS ABSOLUTE AUTO 0.2 x10-3/uL (0.0-0.8); EOSINOPHILS PERCENT AUTO 2.3 % (0.6-8.1); LYMPHOCYTES ABSOLUTE AUTO 2.8 x10-3/uL (1.0-4.4); LYMPHOCYTES PERCENT AUTO 28.3 % (18.4-52.1); MEAN PLATELET VOLUME 8.0 fL (7.1-12.4); MONOCYTES ABSOLUTE AUTO 0.8 x10-3/uL (0.3-1.0); MONOCYTES PERCENT AUTO 8.1 % (4.4-15.7); NEUTROPHILS ABSOLUTE AUTO 6.0 x10-3/uL (1.5-6.3); NEUTROPHILS PERCENT AUTO 60.5 % (30.8-76.2); PLATELET COUNT,PLT 337 x10(3)uL (151-488); RED BLOOD CELL COUNT 4.98 x10(6)uL (3.60-5.20); RED CELL DISTRIBUTION WIDTH 13.9 % (12.3-16.5); WHITE BLOOD CELL COUNT,WBC 9.8 x10-3/uL (3.0-10.3)
[2025-03-29 16:45] LABS: BLOOD UREA NITROGEN,BUN 9 mg/dL (7-18); CARBON DIOXIDE,CO2 28 mmol/L (21-32); CHLORIDE,CL 105 mmol/L (100-110); CREATININE 0.8 mg/dL (0.55-1.02); EST CRCL DRUG DOSING (CG) 111.37 mL/min; ESTIMATED GFR 104 mL/min (>60); GLUCOSE RANDOM 83 mg/dL (80-116); POTASSIUM,K 4.0 mmol/L (3.5-5.3); SODIUM,NA 142 mmol/L (135-145)
[2025-03-29] MEDS: Ondansetron 4 MG/2 ML SDV IVPUSH ONE (16:48)
[2025-03-29] MEDS: Ketorolac 30 MG/ML SDV IVPUSH ONE (16:49)
[2025-03-29 16:51] LABS: A/G RATIO 1.0; ALANINE AMINOTRANSFERASE,ALT 34 U/L (12-36); ASPARTATE AMNIOTRANSFERASE,AST 19 IU/L (5-25); BILIRUBIN TOTAL 0.2 mg/dL (0.1-1.3); PROTEIN TOTAL,TP 7.6 g/dL (6.0-8.0)
[2025-03-29 16:55] LABS: LACTIC ACID 1.2 mmol/L (0.4-2.0)
[2025-03-29 17:56] LABS: GLUCOSE,URINE NORMAL (NORMAL); OCCULT BLOOD,URINE NEGATIVE (NEGATIVE)
[2025-03-29 17:57] LABS: APPEARANCE,URINE SLIGHTLY CLOUDY (CLEAR)
[2025-03-29 18:06] LABS: SQUAMOUS EPITHELIAL CELLS,UR FEW (NS,R,O)
[2025-03-29 18:37] VITALS: BP 122/64; PULSE 87
== END 2025-03-29 18:27 | disposition home or self-care (01) ==
LOC: FB.ED 16:03
DX: N83.201 Unspecified ovarian cyst, right side (principal); N30.01 Acute cystitis with hematuria; I10 Essential (primary) hypertension; E66.9 Obesity, unspecified; E86.0 Dehydration; Z88.0 Allergy status to penicillin; Z79.899 Other long term (current) drug therapy; Z68.41 Body mass index [BMI] 40.0-44.9, adult
CPT/HCPCS: 74176; 80053; 81001; 83605; 83690; 85025; 86140; 87086; 87088; 87186; 96361; 96374; 96375; 99284; A9270; J1885; J2405; J7030